=== PATIENT | female | born 1985 | race Caucasian/White ===

== ENCOUNTER 2019-10-20 19:04 | Emergency (ER) | payer OTHER, SELFPAY ==
--- NOTE | 2019-10-20 20:12 | EDPHYS ---
Physician Documentation [facility] Name: Shelby Campos Age: 34 yrs Sex: Female : 1985 Arrival Date: 10/20/2019 Time: 19:07 Bed 24 Private MD: ED Physician Zackary Damon HPI: 10/20 20:23 This 34 yrs old Female presents to ER via Ambulatory with complaints of Flu kb Symptoms. 20:23 The patient or guardian reports cough, that is intermittent, described as moderate, kb with no sputum, flu symptoms, low-grade fever. Onset: The symptoms/episode began/occurred 3 day(s) ago. Severity of symptoms: At their worst the symptoms were moderate, in the emergency department the symptoms are unchanged. Modifying factors: The symptoms are alleviated by nothing, the symptoms are aggravated by nothing. Associated signs and symptoms: Pertinent positives: fever, rhinorrhea. The patient has not experienced similar symptoms in the past. The patient has not recently seen a physician. 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 - Social history:: Smoking status: Patient uses tobacco products, Patient/guardian denies using alcohol, street drugs, IV drugs. - Ebola Screening: : No symptoms or risks identified at this time. ROS: 20:22 Eyes: Negative for injury, pain, redness, and discharge, Neck: Negative for injury, kb pain, and swelling, Cardiovascular: Negative for chest pain, palpitations, and edema, Abdomen/GI: Negative for abdominal pain, nausea, vomiting, diarrhea, and constipation, Back: Negative for injury and pain, MS/Extremity: Negative for injury and deformity, Skin: Negative for injury, rash, and discoloration, Neuro: Negative for headache, weakness, numbness, tingling, and seizure. 20:22 Constitutional: Positive for body aches, chills, fatigue, fever, malaise. 20:22 ENT: Positive for rhinorrhea, sinus congestion. 20:22 Respiratory: Positive for cough, Negative for dyspnea on exertion, hemoptysis, orthopnea, pleurisy, shortness of breath, sputum production, wheezing. Exam: 20:22 Constitutional: This is a well developed, well nourished patient who is awake, alert, kb and in no acute distress. Head/Face: Normocephalic, atraumatic. ENT: Nares patent. No nasal discharge, no septal abnormalities noted. Tympanic membranes are normal and external auditory canals are clear. Oropharynx with no redness, swelling, or masses, exudates, or evidence of obstruction, uvula midline. Mucous membranes moist. Neck: Trachea midline, no thyromegaly or masses palpated, and no cervical lymphadenopathy. Supple, full range of motion without nuchal rigidity, or vertebral point tenderness. No Meningismus. Chest/axilla: Normal chest wall appearance and motion. Nontender with no deformity. No lesions are appreciated. Cardiovascular: Regular rate and rhythm with a normal S1 and S2. No gallops, murmurs, or rubs. Normal PMI, no JVD. No pulse deficits. Respiratory: Lungs have equal breath sounds bilaterally, clear to auscultation and percussion. No rales, rhonchi or wheezes noted. No increased work of breathing, no retractions or nasal flaring. Abdomen/GI: Soft, non-tender, with normal bowel sounds. No distension or tympany. No guarding or rebound. No evidence of tenderness throughout. Skin: Warm, dry with normal turgor. Normal color with no rashes, no lesions, and no evidence of cellulitis. MS/ Extremity: Pulses equal, no cyanosis. Neurovascular intact. Full, normal range of motion. Neuro: Awake and alert, GCS 15, oriented to person, place, time, and situation. Cranial nerves II-XII grossly intact. Motor strength 5/5 in all extremities. Sensory grossly intact. Cerebellar exam normal. Normal gait. Vital Signs: 19:18 BP 108 / 79; Pulse 73; Resp 18; Temp 98; Pulse Ox 100% on R/A; Weight 90.72 kg; Height mg2 5 ft. 8 in. (172.72 cm); 19:18 Body Mass Index 30.41 (90.72 kg, 172.72 cm) mg2 MDM: 19:33 Patient medically screened. kb 20:21 Data reviewed: vital signs, nurses notes. Data interpreted: Pulse oximetry: on room air kb is 100 %. Interpretation: normal. Counseling: I had a detailed discussion with the patient and/or guardian regarding: the historical points, exam findings, and any diagnostic results supporting the discharge/admit diagnosis, lab results, the need for outpatient follow up, a family practitioner, to return to the emergency department if symptoms worsen or persist or if there are any questions or concerns that arise at home. 20:24 ED course: Pt is a smoker. kb 10/20 19:21 Order name: Flu; Complete Time: 20:08 mg2 Administered Medications: No medications were administered Disposition: 10/20/19 20:12 Discharged to Home. Impression: Bronchitis, not specified as acute or chronic. - Condition is Stable. - Discharge Instructions: Acute Bronchitis, [id number]. - Prescriptions for Prednisone 20 mg Oral Tablet - take 1 tablet by ORAL route once daily for 5 days; 5 tablet. Tessalon Perles 100 mg Oral Capsule - take 1 capsule by ORAL route every 8 hours As needed; 15 capsule. Zithromax Z- Justino 250 mg Oral Tablet - take 1 tablet by ORAL route as directed for 5 days Day 1 - take two (2) tablets one time. Day 2, 3, 4 , 5 take one (1) tablet once daily.; 6 tablet. - Medication Reconciliation Form, Thank You Letter, Antibiotic Education, Prescription Opioid Use, Work release form form. - Follow up: Emergency Department; When: As needed; Reason: Worsening of condition. Follow up: Private Physician; When: 2 - 3 days; Reason: Recheck today's complaints, Continuance of care, Re-evaluation by your physician. Addendum: 10/26/2019 07:05 Co-signature as Attending Physician, Zackary Damon MD. r n Signatures: Dispatcher [employer] EDNJ Liyah Falk, COMPUTATIONAL SCIENTIST-C COMPUTATIONAL SCIENTIST-Ckb Zackary Damon MD MD rn Gardose, Michele, RN RN mg2 Serafin Tucker RN RN tr5 Corrections: (The following items were deleted from the chart) 10/20 20:29 20:12 10/20/2019 20:12 Discharged to Home. Impression: Bronchitis, not specified as tr5 acute or chronic. Condition is Stable. Forms are Medication Reconciliation Form, Thank You Letter, Antibiotic Education, Prescription Opioid Use. Follow up: Emergency Department; When: As needed; Reason: Worsening of condition. Follow up: Private Physician; When: 2 - 3 days; Reason: Recheck today's complaints, Continuance of care, Re-evaluation by your physician. kb
--- NOTE | 2019-10-20 20:12 | ER ---
Nurse's Notes [facility] Name: Shelby Campos Age: 34 yrs Sex: Female : 1985 Arrival Date: 10/20/2019 Time: 19:07 Bed 24 Private MD: Diagnosis: Bronchitis, not specified as acute or chronic Presentation: 10/20 19:16 Presenting complaint: Patient states: cough, congestion and feels like my head is mg2 blowing for 4 days now. i had fever T-max 102.1. Transition of care: patient was not received from another setting of care. Onset of symptoms was October 2019. Risk Assessment: Do you want to hurt yourself or someone else? Patient reports no desire to harm self or others. Initial Sepsis Screen: Does the patient meet any 2 criteria? No. Patient's initial sepsis screen is negative. Does the patient have a suspected source of infection? No. Patient's initial sepsis screen is negative. Care prior to arrival: None. 19:16 Method Of Arrival: Ambulatory mg2 19:16 Acuity: ROSALVA 4 mg2 Triage Assessment: 20:26 General:. 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 - Social history:: Smoking status: Patient uses tobacco products, Patient/guardian denies using alcohol, street drugs, IV drugs. - Ebola Screening: : No symptoms or risks identified at this time. Screenin:55 Abuse screen: Denies threats or abuse. Nutritional screening: No deficits noted. tr5 Tuberculosis screening: No symptoms or risk factors identified. Fall Risk None identified. Assessment: 19:55 Pain: Complains of pain in face. Neuro: Reports headache. 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 Cardiovascular: Heart tones present Capillary refill < 3 seconds Pulses are all present. Respiratory: Reports cough that is. Respiratory: Airway is patent Respiratory effort is even, unlabored, Respiratory pattern is regular, symmetrical. GI: No signs and/or symptoms were reported involving the gastrointestinal system. : No signs and/or symptoms were reported regarding the genitourinary system. EENT: Reports nasal congestion nasal discharge. Derm: No signs and/or symptoms reported regarding the dermatologic system. Musculoskeletal: No signs and/or symptoms reported regarding the musculoskeletal system. Vital Signs: 19:18 BP 108 / 79; Pulse 73; Resp 18; Temp 98; Pulse Ox 100% on R/A; Weight 90.72 kg; Height mg2 5 ft. 8 in. (172.72 cm); 19:18 Body Mass Index 30.41 (90.72 kg, 172.72 cm) mg2 ED Course: 19:07 Patient arrived in ED. mr 19:14 Liyah Falk FNP-C is [facility]. kb 19:14 Zackary Damon MD is Attending Physician. kb 19:18 Triage completed. mg2 19:19 Arm band placed on. mg2 19:40 Serafin Tucker, LUCIA is Primary Nurse. tr5 19:42 Flu Sent. tr5 19:55 Bed in low position. Call light in reach. Side rails up X 1. tr5 20:27 No provider procedures requiring assistance completed. Patient did not have IV access tr5 during this emergency room visit. Administered Medications: No medications were administered Outcome: 20:12 Discharge ordered by MD. kb 20:27 Discharged to home ambulatory, with family. tr5 20:27 Condition: stable 20:27 Discharge instructions given to patient, family, Instructed on discharge instructions, follow up and referral plans. medication usage, Demonstrated understanding of instructions, follow-up care, medications, Prescriptions given X 3. 20:29 Patient left the ED. tr5 Signatures: Liyah Falk FNP-C FNP-Hermann Aleta NixJay, RN RN mg2 Serafin Tucker RN RN tr5 Corrections: (The following items were deleted from the chart) 19:20 19:18 LMP 10/17/2019 mg2 mg2
[2019-10-20 23:06] VITALS: BP 108/79; TEMP 98; O2SAT 100
== END 2019-10-20 20:29 | disposition home or self-care (01) ==
LOC: ER 19:04
DX: J40 Bronchitis, not specified as acute or chronic (principal); Z72.0 Tobacco use
CPT/HCPCS: 87804; 99283

== ENCOUNTER 2021-09-14 18:59 | Emergency (ER) | payer SELFPAY ==
[2021-09-14] MEDS ORDERED: MORPHINE 4 MG/ML SYR ONE (20:40)
[2021-09-14] MEDS ORDERED: ONDANSETRON 4 MG/2 ML VIAL ONE (20:41)
[2021-09-14] MEDS ORDERED: NA CHLORIDE 0.9% 1,000 ML ONE (20:41)
[2021-09-14 20:46] LABS: Absolute Lymphocytes (CBC) 2.9 K/uL (0.7-4.9); Basophils % 0.8 % (0-1.3); Hematocrit 34.5 % (36.0-45.0); Lymphocytes % 24.2 % (15.3-44.8); MPV 8.5 fL (7.6-11.3); RBC Red Blood Cell Count 3.65 M/uL (3.86-4.86)
--- NOTE | 2021-09-14 20:58 | RAD REPORT ---
EXAM DESCRIPTION: US - Transvaginal Study Probe - 09/14/2021 8:39 pm CLINICAL HISTORY: LLQ PAIN Pelvic pain. COMPARISON: <Comparisons> FINDINGS: The uterus is normal in size, shape and echotexture. The uterus measures 9.3 cm The endometrial stripe measures 4 mm, normal. Both ovaries are normal in size, shape and echotexture. The right ovary measures 12 cc. The left ov sami measures 5.7 cc. Simple 2.5 cm right ovaria cyst. No adnexal masses. Normal Doppler blood flow was demonstrated to both ovaries. No significant pelvic ascites. IMPRESSION: Bilateral ovarian blood flow. No suspicious findings.
--- NOTE | 2021-09-14 20:59 | RAD REPORT ---
EXAM DESCRIPTION: US - Pelvis Complete - 09/14/2021 8:36 pm CLINICAL HISTORY: llq pelvic pain Pelvic pain. FINDINGS: The uterus is normal in size, shape and echotexture. The uterus measures 9.3 cm The endometrial stripe measures 4 mm, normal. Both ovaries are normal in size, shape and echotexture. The right ovary measures 12 cc. The left ov sami measures 5.7 cc. Simple 2.5 cm right ovarian cyst. No adnexal masses. Normal Doppler blood flow was demonstrated to both ovaries. No significant pelvic ascites. IMPRESSION: Bilateral ovarian blood flow. No suspicious findings.
[2021-09-14 21:09] LABS: ALT/SGPT 27 U/L (12-78); AST/SGOT 18 U/L (15-37); Albumin 3.3 g/dL (3.4-5.0); Alkaline Phosphatase 76 U/L (45-117); BUN Blood Urea Nitrogen 13 mg/dL (7-18); Bicarbonate 27 mmol/L (21-32); Bilirubin Direct < 0.1 mg/dL (0-0.2); Bilirubin Total 0.3 mg/dL (0.2-1.0); Glucose Level 93 mg/dL (74-106); Lipase 107 U/L (73-393); Potassium 4.2 mmol/L (3.5-5.1); Protein, Total 7.1 g/dL (6.4-8.2); Sodium Level 139 mmol/L (136-145)
--- NOTE | 2021-09-14 21:31 | ER ---
Nurse's Notes [facility] Name: Shelby Campos Age: 36 yrs Sex: Female : 1985 Arrival Date: 09/14/2021 Time: 19:18 Bed 5 Private MD: Diagnosis: Pelvic and perineal pain Presentation: 09/14 19:18 Chief complaint: Patient states: Left sided pelvic pain, sharp/pulling pain, that began vg1 about two weeks and became 'severe' last night. Denies NVD. States the menstrual has been 'really weird' for the past three months. Coronavirus screen: Vaccine status: Patient reports being unvaccinated. Client denies travel out of the [place] in the last 14 days. Ebola Screen: Patient negative for fever greater than or equal to 101.5 degrees Fahrenheit, and additional compatible Ebola Virus Disease symptoms. Initial Sepsis Screen: Does the patient meet any 2 criteria? No. Patient's initial sepsis screen is negative. Does the patient have a suspected source of infection? No. Patient's initial sepsis screen is negative. Risk Assessment: Do you want to hurt yourself or someone else? Patient reports no desire to harm self or others. Onset of symptoms was August 26, 2021. 19:18 Method Of Arrival: Ambulatory vg1 19:18 Acuity: ROSALVA 3 vg1 Triage Assessment: 19:24 General: Appears in no apparent distress. uncomfortable, Behavior is calm, cooperative. vg1 Pain: Complains of pain in pelvis Pain currently is 10 out of 10 on a pain scale. GI: Patient currently denies diarrhea, nausea, vomiting. 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 - Social history:: Smoking status: Patient reports the use of cigarette tobacco products, 1 pack/ week, Patient uses Patient/guardian denies using alcohol, street drugs, The patient lives with family. - Family history:: not pertinent. Screenin:00 Abuse screen: Denies threats or abuse. Denies injuries from another. Nutritional mr2 screening: No deficits noted. Tuberculosis screening: No symptoms or risk factors identified. Fall Risk IV access (20 points). Vital Signs: 19:18 BP 116 / 50; Pulse 67; Resp 16; Temp 97.1; Pulse Ox 100% ; Weight 104.33 kg; Height 5 vg1 ft. 9 in. (175.26 cm); Pain 10/10; 19:18 Body Mass Index 33.96 (104.33 kg, 175.26 cm) vg1 ED Course: 19:18 Patient arrived in ED. vg1 19:24 Triage completed. vg1 19:24 Arm band placed on. vg1 19:26 Elizabeth Jacobs MD is Attending Physician. ma2 20:17 Gisele Bourgeois, RN is Primary Nurse. bs2 20:17 US Pelvis Complete Sent. bs2 20:29 US Pelvis Complete In Process Unspecified. EDMS 20:39 Transvaginal Study Probe In Process Unspecified. EDMS 21:00 Bed in low position. Call light in reach. Side rails up X2. Adult w/ patient. mr2 21:00 No provider procedures requiring assistance completed. mr2 21:30 Madhav Calero MD is Referral Physician. ma2 21:41 IV discontinued, intact, No redness/swelling at site. mr2 Administered Medications: 20:43 Drug: Zofran (Ondansetron) 4 mg Route: IVP; Site: right antecubital; bs2 20:44 Drug: morphine 4 mg Route: IVP; Site: right antecubital; bs2 20:44 Drug: NS 0.9% 1000 ml Route: IV; Rate: 1 bolus; Site: right antecubital; bs2 Outcome: 21:30 Discharge ordered by . ma2 21:40 Discharged to home ambulatory, with family. mr2 21:40 Condition: stable 21:40 Discharge instructions given to patient, Instructed on discharge instructions, follow up and referral plans. medication usage, Prescriptions given X 1. 21:41 Patient left the ED. mr2 Signatures: Dispatcher [employer] EDMS Elizabeth Jacobs MD MD ma2 Meme Peterson RN RN vg1 Gisele Bourgeois, LUCIA RN bs2 Marquise Delgado RN RN mr2 Corrections: (The following items were deleted from the chart) 19:29 19:18 BP 116 / 50; Pulse 67bpm; Resp 16bpm; Pulse Ox 100%; Temp 97.1F; Height 5 ft. 9 vg1 in.; Pain 10/10; vg1
--- NOTE | 2021-09-14 21:32 | EDPHYS ---
Physician Documentation [facility] Name: Shelby Campos Age: 36 yrs Sex: Female : 1985 Arrival Date: 09/14/2021 Time: 19:18 Bed 5 Private MD: ED Physician Elizabeth Jacobs HPI: 09/14 19:38 This 36 yrs old Female presents to ER via Ambulatory with complaints of ma2 Pelvic Pain. 19:38 The patient presents with flank pain, on the left, pelvic pain. Onset: The ma2 symptoms/episode began/occurred suddenly, 1 day(s) ago. Associated signs and symptoms: Pertinent negatives: cramping, dysuria, nausea, urinary frequency. Severity of symptoms: At their worst the symptoms were moderate, in the emergency department the symptoms are unchanged. The patient has not experienced similar symptoms in the past. 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 - Social history:: Smoking status: Patient reports the use of cigarette tobacco products, 1 pack/ week, Patient uses Patient/guardian denies using alcohol, street drugs, The patient lives with family. - Family history:: not pertinent. ROS: 19:38 Negative for ma2 19:38 Constitutional: Negative for fever, chills, and weight loss, Eyes: Negative for injury, pain, redness, and discharge, ENT: Negative for injury, pain, and discharge, Neck: Negative for injury, pain, and swelling, Cardiovascular: Negative for chest pain, palpitations, and edema, Respiratory: Negative for shortness of breath, cough, wheezing, and pleuritic chest pain, Abdomen/GI: Negative for abdominal pain, nausea, diarrhea, and constipation, Back: Negative for injury and pain. 19:38 All other systems are negative. Exam: 19:38 Constitutional: This is a well developed, well nourished patient who is awake, alert, ma2 and in no acute distress. Head/Face: Normocephalic, atraumatic. Eyes: Pupils equal round and reactive to light, extra-ocular motions intact. Lids and lashes normal. Conjunctiva and sclera are non-icteric and not injected. Cornea within normal limits. Periorbital areas with no swelling, redness, or edema. ENT: Nares patent. No nasal discharge, no septal abnormalities noted. Tympanic membranes are normal and external auditory canals are clear. Oropharynx with no redness, swelling, or masses, exudates, or evidence of obstruction, uvula midline. Mucous membranes moist. Neck: Trachea midline, no thyromegaly or masses palpated, and no cervical lymphadenopathy. Supple, full range of motion without nuchal rigidity, or vertebral point tenderness. No Meningismus. Chest/axilla: Normal chest wall appearance and motion. Nontender with no deformity. No lesions are appreciated. Cardiovascular: Regular rate and rhythm with a normal S1 and S2. No gallops, murmurs, or rubs. Normal PMI, no JVD. No pulse deficits. Respiratory: Lungs have equal breath sounds bilaterally, clear to auscultation and percussion. No rales, rhonchi or wheezes noted. No increased work of breathing, no retractions or nasal flaring. Abdomen/GI: Soft, non-tender, with normal bowel sounds. No distension or tympany. No guarding or rebound. No evidence of tenderness throughout. Back: No spinal tenderness. No costovertebral tenderness. Full range of motion. Skin: Warm, dry with normal turgor. Normal color with no rashes, no lesions, and no evidence of cellulitis. MS/ Extremity: Pulses equal, no cyanosis. Neurovascular intact. Full, normal range of motion. Neuro: Awake and alert, GCS 15, oriented to person, place, time, and situation. Cranial nerves II-XII grossly intact. Motor strength 5/5 in all extremities. Sensory grossly intact. Cerebellar exam normal. Normal gait. Vital Signs: 19:18 BP 116 / 50; Pulse 67; Resp 16; Temp 97.1; Pulse Ox 100% ; Weight 104.33 kg; Height 5 vg1 ft. 9 in. (175.26 cm); Pain 10/10; 19:18 Body Mass Index 33.96 (104.33 kg, 175.26 cm) vg1 MDM: 19:29 Patient medically screened. ma2 19:38 Differential diagnosis: menorrhea, nonspecific abdominal pain, urinary tract infection. ms2 19:51 Differential diagnosis: Patient agreed on getting CT abdomen pelvis, however she ma2 changed her mind and declined the test, I explained the need and is necessary test to rule out emergency conditions, patient still declined understand the risk of refusing CT abdomen pelvis. 21:30 Data reviewed: vital signs, nurses notes. Counseling: I had a detailed discussion with ma2 the patient and/or guardian regarding: the historical points, exam findings, and any diagnostic results supporting the discharge/admit diagnosis, the presence of at least one elevated blood pressure reading (>120/80) during this emergency department visit. Response to treatment: the patient's symptoms have markedly improved after treatment. 09/14 19:31 Order name: Basic Metabolic Panel; Complete Time: 21:25 [facility] 09/14 19:31 Order name: CBC with Diff; Complete Time: 21:25 [facility] 09/14 19:31 Order name: Hepatic Function; Complete Time: 21:25 [facility] 09/14 19:31 Order name: Lipase; Complete Time: 21:25 [facility] 09/14 19:38 Order name: US Pelvis Complete; Complete Time: 21:25 [facility] 09/14 19:31 Order name: IV Saline Lock [facility] 09/14 19:31 Order name: Labs collected and sent [facility] 09/14 19:31 Order name: Urine Dipstick-Ancillary (obtain specimen) [facility] 09/14 19:31 Order name: Urine Test (obtain specimen) [facility] 09/14 20:37 Order name: Transvaginal Study Probe; Complete Time: 21:25 EDMS Administered Medications: 20:43 Drug: Zofran (Ondansetron) 4 mg Route: IVP; Site: right antecubital; bs2 20:44 Drug: morphine 4 mg Route: IVP; Site: right antecubital; bs2 20:44 Drug: NS 0.9% 1000 ml Route: IV; Rate: 1 bolus; Site: right antecubital; bs2 Disposition Summary: 09/14/21 21:30 Discharge Ordered Location: Home ma2 Condition: Stable ma2 Diagnosis - Pelvic and perineal pain ms2 Followup: ma2 - With: Madhav Calero MD - When: Tomorrow - Reason: If symptoms return, Continuance of care Discharge Instructions: - Discharge Summary Sheet ma2 - Pelvic Pain, Female, [id number] ma2 Forms: - Medication Reconciliation Form ma2 - Thank You Letter ma2 - Antibiotic Education ma2 - Prescription Opioid Use ma2 Prescriptions: - Diclofenac Sodium 75 mg Oral Tablet Sustained Release - take 1 tablet by ORAL route 2 times per day; 30 tablet; Refills: 0, Product ma2 Selection Permitted Signatures: Dispatcher [employer] EDElizabeth Paul MD MD ma2 Meme Peterson RN RN vg1 Gisele Bourgeois RN RN bs2
[2021-09-14 21:48] VITALS: BP 116/50; TEMP 97.1; O2SAT 100
== END 2021-09-14 21:41 | disposition home or self-care (01) ==
LOC: ER 18:59
DX: R10.2 Pelvic and perineal pain (principal); F41.9 Anxiety disorder, unspecified; F17.210 Nicotine dependence, cigarettes, uncomplicated
CPT/HCPCS: 36415; 76830; 76856; 80048; 80076; 83690; 85025; 96374; 96375; 99283; J2405; J7030

== ENCOUNTER → 2023-12-07 | Emergency (ER) | payer SELFPAY ==
[2012-06-05 20:40] VITALS: BP 142/67
[~2023-12-07] MED LIST: HYDROCODONE/APAP 10/325 TAB ONE; KETOROLAC 30 MG/ML INJ ONE
--- OUTSIDE RECORDS SUMMARY | 2023-12-07 17:56 | XMS REPORT | Continuity of Care Document ---
Author Name Unknown Address [address] [facility] [address] [id number] [facility] thconnect Address [address] [facility] [address] [place] [address] Care Team Providers Care Title Attorney Name Role Phone Marisol Archuleta Attending Clinician Unavailable Lindsay Chung Attending Clinician Unavailable Encounters Start Date/Time End Date/Time Encounter Type Admission Type Attending Clinicians Care Facility Care Department Encounter ID Source 2023-04-01 10:22:47 Outpatient [facility] [id number] [facility] 2023-10-19 09:42:00 2023-10-19 09:42:00 Outpatient Marisol Archuleta [facility] [id number] [facility] 2023-04-01 10:39:00 2023-04-01 10:39:00 Outpatient Lindsay Chung CHW [id number] [facility]
--- NOTE | 2023-12-07 19:08 | RAD REPORT ---
EXAM DESCRIPTION: RAD - Chest Single View - 12/07/2023 7:02 pm CLINICAL HISTORY: PAIN Chest pain. COMPARISON: <Comparisons> FINDINGS: Portable technique limits examination quality. The lungs are grossly clear. The heart is normal in size. No displaced fractures. IMPRESSION: No acute intrathoracic process suspected.
--- NOTE | 2023-12-07 19:08 | RAD REPORT ---
EXAM DESCRIPTION: RAD - Shoulder Left 2 View - 12/07/2023 7:02 pm CLINICAL HISTORY: PAIN COMPARISON: <Comparisons> FINDINGS: Mild widening of the AC joint could indicate grade 1 separation. No fracture or dislocatio n otherwise seen.
--- NOTE | 2023-12-07 19:09 | RAD REPORT ---
EXAM DESCRIPTION: RAD - Ribs Left - 12/07/2023 7:02 pm CLINICAL HISTORY: PAIN COMPARISON: <Comparisons> FINDINGS: No displaced rib fracture is seen. No underlying pneumothorax.
--- NOTE | 2023-12-07 20:14 | ER ---
Nurse's Notes [facility] Name: Shelby Campos Age: 38 yrs Sex: Female : 1985 Arrival Date: 12/07/2023 Time: 17:53 Bed IW1 Private MD: Diagnosis: Pain in left shoulder Presentation: 12/07 18:04 Chief complaint: Patient states: she had a fall injury approx 10 days ago, and is ap3 complaining of left shoulder pain that is getting worse and not any better. patient states the pain radiates to her mid-back area, and reports her pain to be a 10/10 at this time. Coronavirus screen: At this time, the client does not indicate any symptoms associated with coronavirus-19. Ebola Screen: No symptoms or risks identified at this time. Initial Sepsis Screen: Does the patient meet any 2 criteria? No. Patient's initial sepsis screen is negative. Does the patient have a suspected source of infection? No. Patient's initial sepsis screen is negative. Risk Assessment: Do you want to hurt yourself or someone else? Patient reports no desire to harm self or others. Onset of symptoms was November 27, 2023. 18:04 Method Of Arrival: Ambulatory ap3 18:09 Acuity: ROSALVA 4 ap3 Triage Assessment: 18:07 General: Appears uncomfortable, Behavior is calm, cooperative, appropriate for age. ap3 Pain: Complains of pain in anterior aspect of left shoulder and posterior aspect of left shoulder Pain radiates to left elbow and mid-back Pain currently is 10 out of 10 on a pain scale. Neuro: Level of Consciousness is awake, alert, obeys commands, Oriented to person, place, time, situation, Appropriate for age. Cardiovascular: Patient's skin is warm and dry. Respiratory: Airway is patent Respiratory effort is even, unlabored, Respiratory pattern is regular, symmetrical. 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 - Social history:: Smoking status: Patient reports the use of cigarette tobacco products, smokes one-half pack cigarettes per day. Screenin:08 [facility] ED Fall Risk Assessment (Adult) History of falling in the last 3 months, ap3 including since admission Yes- single mechanical fall (1 pt). Abuse screen: Denies threats or abuse. Nutritional screening: No deficits noted. Tuberculosis screening: No symptoms or risk factors identified. Primary Survey: 18:08 NO uncontrolled hemorrhage observed. A: The client is awake and alert. The airway is ap3 patent. Breathing/Chest: Spontaneous respiratory effort, equal unlabored respirations, breath sounds clear bilaterally, regular pattern, symmetrical chest rise and fall. Circulation: No external hemorrhage present. Regular and strong central pulse, skin warm/dry/normal color. Disability Client is alert. Exposure/Environment: A warming method has been applied: A warm blanket has been provided to the patient. Vital Signs: 18:04 Pulse 78; Resp 19; Temp 98.8; Pulse Ox 97% on R/A; Weight 136.08 kg; Height 5 ft. 9 in. ap3 ; Pain 10/10; 18:04 Body Mass Index 44.30 (136.08 kg, 175.26 cm) ap3 18:04 Pain Scale: Adult ap3 ED Course: 17:56 Patient arrived in ED. mg5 18:02 Liyah Falk FNP-C is [facility]. kb 18:02 Eloy Das MD is Attending Physician. kb 18:09 Triage completed. ap3 18:09 Arm band placed on right wrist. ap3 19:04 Ribs Left XRAY In Process Unspecified. EDMS 19:04 Shoulder Left (2 View) XRAY In Process Unspecified. EDMS 19:04 Chest Single View XRAY In Process Unspecified. EDMS 20:41 Provided Education on: discharge instructions. ap3 20:41 Patient has correct armband on for positive identification. ap3 20:41 No provider procedures requiring assistance completed. Patient did not have IV access ap3 during this emergency room visit. Administered Medications: 18:12 Drug: [place] PO 10 mg-325 mg 1 tabs PO once Route: PO; ap3 20:40 Follow up: Response: No adverse reaction; RASS: Alert and Calm (0) ap3 20:40 Drug: Ketorolac IM 30 mg IM once Route: IM; Site: right deltoid; ap3 Medication: 20:41 VIS not applicable for this client. ap3 Outcome: 20:14 Discharge ordered by MD. dasilva 20:41 Discharged to home ambulatory, ap3 20:41 Condition: good 20:41 Discharge instructions given to patient, Instructed on discharge instructions, follow up and referral plans. 20:42 Patient left the ED. ap3 Signatures: Dispatcher [employer] EDLiyah Church, Tiffanie Scott RN RN ap3 Joanne French mg5
--- NOTE | 2023-12-07 20:15 | EDPHYS ---
Physician Documentation [facility] Name: Shelby Campos Age: 38 yrs Sex: Female : 1985 Arrival Date: 12/07/2023 Time: 17:53 Bed IW1 Private MD: ED Physician Eloy Das HPI: 12/07 23:39 This 38 yrs old Female presents to ER via Ambulatory with complaints of Fall Injury, kb Pain All Over. 23:39 Patient is a 38-year-old female who presents for left shoulder and posterior chest pain kb that started 9 days ago after falling onto left shoulder. Denies shortness of breath. Reports increased pain with movement and deep breath.. 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 - Social history:: Smoking status: Patient reports the use of cigarette tobacco products, smokes one-half pack cigarettes per day. ROS: 23:39 Constitutional: Negative for fever, chills, and weight loss, kb 23:39 MS/extremity: Positive for pain, of the posterior aspect of left shoulder and anterior aspect of left shoulder, 23:39 All other systems are negative, Exam: 23:39 Constitutional: This is a well developed, well nourished patient who is awake, alert, kb and in no acute distress. Head/Face: Normocephalic, atraumatic. ENT: Moist Mucous membranes Cardiovascular: Regular rate Respiratory: Respirations even and unlabored. No increased work of breathing. Talking in full sentences Skin: Warm, dry with normal turgor. Normal color. Neuro: Awake and alert, GCS 15, oriented to person, place, time, and situation. Moves all extremities. Normal gait. 23:39 Back: pain, that is mild, that is moderate, of the left scapular area, 23:39 Musculoskeletal/extremity: Extremities: grossly normal except: noted in the anterior aspect of left shoulder and posterior aspect of left shoulder: decreased ROM, pain, tenderness, ROM: limited active range of motion due to pain, in the posterior aspect of left shoulder and anterior aspect of left shoulder, Circulation is intact in all extremities. Sensation intact. Vital Signs: 18:04 Pulse 78; Resp 19; Temp 98.8; Pulse Ox 97% on R/A; Weight 136.08 kg; Height 5 ft. 9 in. ap3 ; Pain 10/10; 18:04 Body Mass Index 44.30 (136.08 kg, 175.26 cm) ap3 18:04 Pain Scale: Adult ap3 MDM: 18:02 Patient medically screened. kb 23:39 Differential diagnosis: fracture, sprain, strain. Data reviewed: vital signs, nurses kb notes. Counseling: I had a detailed discussion with the patient and/or guardian regarding the historical points, exam findings, and any diagnostic results supporting the discharge/admit diagnosis, radiology results, the need for outpatient follow up, a family practitioner, a orthopedic surgeon, to return to the emergency department if symptoms worsen or persist or if there are any questions or concerns that arise at home. 12/07 18:09 Order name: Ribs Left XRAY; Complete Time: 19:11 kb 12/07 18:09 Order name: Shoulder Left (2 View) XRAY; Complete Time: 19:11 kb 12/07 18:09 Order name: Chest Single View XRAY; Complete Time: 19:11 kb 12/07 19:48 Order name: Sling; Complete Time: 20:40 kb Administered Medications: 18:12 Drug: [place] PO 10 mg-325 mg 1 tabs PO once Route: PO; ap3 20:40 Follow up: Response: No adverse reaction; RASS: Alert and Calm (0) ap3 20:40 Drug: Ketorolac IM 30 mg IM once Route: IM; Site: right deltoid; ap3 Disposition Summary: 12/07/23 20:14 Discharge Ordered Notes: Location: Home kb Condition: Stable kb Diagnosis - Pain in left shoulder kb Followup: kb - With: Emergency Department - When: As needed - Reason: Worsening of condition Followup: kb - With: Private Physician - When: 2 - 3 days - Reason: Recheck today's complaints, Continuance of care, Re-evaluation by your physician Discharge Instructions: - Discharge Summary Sheet kb - Musculoskeletal Pain kb - Shoulder Pain, [id number] kb Forms: - Medication Reconciliation Form kb - Thank You Letter kb - Antibiotic Education kb - Prescription Opioid Use kb - Patient Portal Instructions kb - Leadership Thank You Letter Prescriptions: - Diclofenac Sodium 75 mg Oral tablet, delayed release (enteric coated) - take 1 tablet ORAL route 2 times per day As needed; 30 tablet; Refills: 0, kb Product Selection Permitted - orphenadrine citrate 100 mg Oral Tablet Sustained Release - take 1 tablet ORAL route 2 times per day As needed; 20 tablet; Refills: 0, kb Product Selection Permitted Signatures: Dispatcher [employer] Liyah Geronimo, Tiffanie Scott, RN RN ap3
== END ==
LOC: ER 17:53
DX: M25.512 Pain in left shoulder (principal); F17.210 Nicotine dependence, cigarettes, uncomplicated
CPT/HCPCS: 71045

== ENCOUNTER 2024-11-13 05:29 | Emergency (ER) | payer SELFPAY ==
--- OUTSIDE RECORDS SUMMARY | 2024-11-13 05:32 | XMS REPORT | Continuity of Care Document ---
Author Name Unknown Address [address] [facility] [address] [place] [address] [facility] thconnect Address [address] [facility] [address] [place] [address] Care Team Providers Care Finisher Plate Name Role Phone URMILA GONZÁLES Attending Clinician Unavailable Payers Payer Name Policy Type Policy Number Effective Date Expirati on Date Source Allergies, Adverse Reactions, Alerts Allergy Name Allergy Type Status Severity Reaction(s) Onset Date Inactive Date Treating Clinician Comments Source No known allergy Miscella neous allergy Active 03-23 00:00: 00 [facility] No known allergy Miscella neous allergy Active 03-23 00:00: 00 [facility] Encounters Start Date/Time End Date/Time Encounter Type Admission Type Attending Clinicians Care Facility Care Department Encounter ID Source 2024-03-01 08:45:00 2024-03-01 08:45:00 Outpatient SELF/OTHER INDIVIDUAL URMILA GONZÁLES [id number] [facility]
[2024-11-13] MEDS ORDERED: LIDOCAINE VISCOUS 2% 10ML ORAL SOLN ONE ×2 (05:45→07:21)
[2024-11-13 05:52] LABS: Absolute Eosinophils 0.1 K/uL (0-0.5); Absolute Lymphocytes (CBC) 1.7 K/uL (0.7-4.9); Absolute Monocytes 0.5 K/uL (0.1-1.3); Basophils % 0.5 % (0-1.3); Hematocrit 34.5 % (36.0-45.0); Hemoglobin 11.6 g/dL (12.0-15.0); MCH 30.2 pg (27.0-35.0); MCHC 33.5 g/dL (32.0-36.0); MCV 90.2 fL (80-100); MPV 8.8 fL (7.6-11.3); Monocytes % 7.5 % (3.3-12.3); Platelets 241 thou/uL (152-406); RBC Red Blood Cell Count 3.83 M/uL (3.86-4.86); Red Cell Distribution Width 14.7 % (12.1-15.2)
[2024-11-13 06:05] LABS: Anion Gap 9.6 mEq/L (5.0-15.0); Potassium 3.6 mEq/L (3.5-5.1)
--- NOTE | 2024-11-13 07:06 | RAD REPORT ---
PROCEDURE: CT Head Without Intravenous Contrast CLINICAL INDICATION: The patient is 39 years old and is Female; Possible seizure. TECHNIQUE: Axial computed tomography images of the head/brain without intravenous contrast. Sagittal and coron al reformatted images were created and reviewed. This CT exam was performed using one or more of the following dose reduction techniques: automated exposure control, adjustment of the mA and/or kV according to patient size, and/or use of iterative reconstruction technique. COMPARISON: None. FINDINGS: BRAIN: No extra-axial fluid collection. No intracranial hemorrhage. No transtentorial herniation. N o focal benoit-white matter differentiation abnormality. MIDLINE SHIFT: None. VENTRICLES: Unremarkable No ventriculomegaly. BONES/JOINTS: No fracture of the calvarium or visualized facial bones. SOFT TISSUES: Unremarkable SINUSES: No masses, bony erosion or evidence of acute sinusitis. MASTOID AIR CELLS: Unremarkable as visualized. No mastoid effusion. IMPRESSION: No acute intracranial abnormality. Electronically signed by: Bob Finch MD 11/13/2024 07:03 AM [facility] Due to temporary technical issues with the PACS/Joturl reporting system, reports are being christopher d by the in-house radiologist without review as a courtesy to ensure prompt reporting the interpreting radiologist is fully responsible for the content of the report. Transcribed Date/Time: 11/13/2024 7:06 AM
--- NOTE | 2024-11-13 07:14 | ER ---
Nurse's Notes [facility] Name: Shelby Campos Age: 39 yrs Sex: Female : 1985 Arrival Date: 11/13/2024 Time: 05:29 Bed 4 Private MD: Diagnosis: Possible Seizure;Tongue Contusion Presentation: 11/13 05:38 Chief complaint: Patient states: c/o tongue swelling. states that she woke up yesterday al5 morning to dried blood down her face and pillow case, thinks she may have bit her tongue in the middle of her sleep. Coronavirus screen: At this time, the client does not indicate any symptoms associated with coronavirus-19. Ebola Screen: No symptoms or risks identified at this time. Initial Sepsis Screen: Does the patient meet any 2 criteria? No. Patient's initial sepsis screen is negative. Does the patient have a suspected source of infection? No. Patient's initial sepsis screen is negative. Risk Assessment: Do you want to hurt yourself or someone else? Patient reports no desire to harm self or others. Onset of symptoms was November 11, 2023. 05:38 Acuity: ROSALVA 3 al5 05:38 Method Of Arrival: Ambulatory al5 Triage Assessment: 05:42 General: Appears in no apparent distress. uncomfortable, Behavior is calm, cooperative. al5 Pain: Complains of pain in tongue. EENT: some tongue swelling. Neuro: Level of Consciousness is awake, alert, obeys commands, Oriented to person, place, time, situation. Cardiovascular: Capillary refill < 3 seconds Patient's skin is warm and dry. Respiratory: Airway is patent Respiratory effort is even, unlabored, Respiratory pattern is regular, symmetrical. GI: No signs and/or symptoms were reported involving the gastrointestinal system. : No signs and/or symptoms were reported regarding the genitourinary system. Derm: Skin is intact, is healthy with good turgor, Skin is pink, warm \T\ dry. normal. Musculoskeletal: No signs and/or symptoms reported regarding the musculoskeletal system. 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 - Infectious Disease History:: Denies. - Social history:: Smoking status: Patient denies any tobacco usage or history of. Screenin:43 [facility] ED Fall Risk Assessment (Adult) History of falling in the last 3 months, al5 including since admission No falls in past 3 months (0 pts) Confusion or Disorientation No (0 pts) Intoxicated or Sedated No (0 pts) Impaired Gait No (0 pts) Mobility Assist Device Used No (0 pt) Altered Elimination No (0 pt) Score/Fall Risk Level 0 - 2 = Low Risk Oriented to surroundings, Maintained a safe environment, Hourly rounding (assess needs \T\ fall precautionary measures) done. Abuse screen: Denies threats or abuse. Denies injuries from another. Nutritional screening: No deficits noted. Tuberculosis screening: No symptoms or risk factors identified. Assessment: 05:43 Reassessment: see triage assessment. al5 06:38 Reassessment: Patient appears in no apparent distress at this time. Patient and/or 8 family updated on plan of care and expected duration. Pain level reassessed. Patient is alert, oriented x 3, equal unlabored respirations, skin warm/dry/pink. Patient states symptoms have improved. 07:14 Reassessment: Patient and/or family updated on plan of care and expected duration. Pain ap3 level reassessed. Patient is alert, oriented x 3, equal unlabored respirations, skin warm/dry/pink. General: Appears in no apparent distress. Behavior is calm, cooperative. Respiratory: Airway is patent Respiratory effort is even, unlabored. Vital Signs: 05:38 BP 137 / 104; Pulse 66; Resp 18; Temp 98.4; Pulse Ox 100% on R/A; Weight 130.63 kg; al5 Height 5 ft. 8 in. ; 06:38 BP 125 / 65; Pulse 62; Resp 13; Temp 98.6; Pulse Ox 96% ; Pain 5/10; bm8 07:27 BP 141 / 88; Pulse 57; Resp 16; Temp 98.4(TE); Pulse Ox 99% ; ap3 05:38 Body Mass Index 43.79 (130.63 kg, 172.72 cm) al5 06:38 Pain Scale: Adult 8 ED Course: 05:31 Patient arrived in ED. jj6 05:31 Naun Xiao MD is Attending Physician. ec2 05:38 Tiffanie Wei RN is Primary Nurse. al5 05:40 Triage completed. al5 05:43 Arm band placed on right wrist. Patient placed in the treatment room, on a stretcher, al5 on pulse oximetry. 05:43 Patient has correct armband on for positive identification. Bed in low position. Call al5 light in reach. Side rails up X 1. Provided Education on: plan of care. 05:43 No provider procedures requiring assistance completed. Inserted saline lock: 20 gauge al5 in left antecubital area, using aseptic technique. ,using aseptic technique. done by LUCIA Sandoval Blood collected. Flushed with 10 mL NS. 06:00 CT Head Brain wo Cont In Process Unspecified. EDMS 07:01 Attending Physician role handed off by Naun Xiao MD ec2 07:01 Hadley Deutsch DO is Attending Physician. ec2 07:13 Real Armstrong MD is Referral Physician. ms3 07:27 IV discontinued, intact, bleeding controlled, No redness/swelling at site. Pressure ap3 dressing applied. Administered Medications: 05:53 Drug: Viscous Lidocaine Mucous Membrane Liquid (4 %) 10 ml Mucous Membrane once Route: bm8 Mucous Membrane; 07:19 Not Given (Duplicate Order): viscous lidocaineliquid (4 %) 10 ml Mucous Membrane once ap3 07:26 Drug: Viscous Lidocaine Mucous Membrane Liquid (4 %) 10 ml Mucous Membrane once Route: ap3 Mucous Membrane; 07:28 Follow up: Response: No adverse reaction; Medication administered at discharge. ap3 Medication: 05:43 VIS not applicable for this client. al5 Outcome: 07:13 Discharge ordered by . ms3 07:27 Discharged to home ambulatory, ap3 07:27 Condition: good 07:27 Discharge instructions given to patient, Instructed on discharge instructions, follow up and referral plans. Demonstrated understanding of instructions, follow-up care, 07:28 Patient left the ED. ap3 Signatures: Dispatcher [employer] EDMS Tiffanie Perry RN RN ap3 Hadley Deutsch DO DO ms3 Leigh Hurt jj6 Naun Xiao MD MD ec2 Jaime Duran, RN RN bm8 Tiffanie Wei RN RN al5 Corrections: (The following items were deleted from the chart) 05:40 05:38 BP 137 / 104; Pulse 66bpm; Resp 18bpm; Pulse Ox 100% RA; Temp 98.4F; 130.63 kg; al5 Height 5 ft. 9 in.; BMI: 42.5; al5 06:43 06:38 Pulse 62bpm; Resp 13bpm; Pulse Ox 96%; Temp 98.6F; Pain 5/10, Adult; bm8 bm8
--- NOTE | 2024-11-13 07:14 | EDPHYS ---
Physician Documentation [facility] Name: Shelby Campos Age: 39 yrs Sex: Female : 1985 Arrival Date: 11/13/2024 Time: 05:29 Bed 4 Private MD: ED Physician Hadley Deutsch HPI: 11/13 05:35 This 39 yrs old Female presents to ER via Unassigned with complaints of Mouth ec2 Problem, Swelling Of Tongue. 05:35 Patient arrives today for evaluation of biting her tongue on the right lateral aspect. ec2 States that approximately 24 hours ago she had woken up and had bit her tongue she had blood on her face and was having mouth pain. No history of seizures, no recent falls injuries or trauma, no illnesses. Denies any headaches. Patient takes Lexapro. 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 - Infectious Disease History:: Denies. - Social history:: Smoking status: Patient denies any tobacco usage or history of. ROS: 05:36 Constitutional: as per hpi ec2 Exam: 05:36 Constitutional: GEN: NAD Head: atraumatic Eyes: EOMI Ears: External ears are normal. ec2 Mouth: Contusion to the lateral aspect of the right tongue, no laceration appreciated. CV: regular rate LUNGS: no respiratory distress ABD: non-distended SKIN: no evidence of rashes MSK: no evidence of trauma. Neuro: Cranial nerves II through XII intact come to the doctor for extremities, gait normal. Vital Signs: 05:38 BP 137 / 104; Pulse 66; Resp 18; Temp 98.4; Pulse Ox 100% on R/A; Weight 130.63 kg; al5 Height 5 ft. 8 in. ; 06:38 BP 125 / 65; Pulse 62; Resp 13; Temp 98.6; Pulse Ox 96% ; Pain 5/10; bm8 07:27 BP 141 / 88; Pulse 57; Resp 16; Temp 98.4(TE); Pulse Ox 99% ; ap3 05:38 Body Mass Index 43.79 (130.63 kg, 172.72 cm) al5 06:38 Pain Scale: Adult bm8 MDM: 05:31 Medical Screening Exam initiated ec2 05:36 Data reviewed: vital signs, nurses notes. ED course: Patient arrives today for ec2 evaluation of a tongue injury. Examination yields tongue findings as above otherwise intact neurologic exam. Will obtain lab work, EKG, CT scan of the head. Differential diagnosis includes tongue contusion, intracranial mass, seizure.. 05:53 ED course: EKG independently reviewed and interpreted by me, shows nsr, rate of 69, no ec2 acute st segment elevations, intervals are non-actionable.. 06:13 ED course: CBC shows slight anemia. Metabolic profile reassuring. Pending CT scan of ec2 the head.. 06:57 Transition of care: After a detail discussion of the patient's case, care is ec2 transferred to Hadley Deutsch DO. ED course: Patient signed out to oncoming physician with pending CT scan of the head.. 07:00 Transition of care: Care assumed from Naun Xiao MD. ms3 07:13 Differential diagnosis: Seizure vs Tongue abrasion vs tongue contusion. I considered ms3 the following discharge prescriptions or medication management in the emergency department Medications were administered in the Emergency Department. See MAR. Counseling: I had a detailed discussion with the patient and/or guardian regarding the historical points, exam findings, and any diagnostic results supporting the discharge/admit diagnosis, lab results, radiology results, the need for outpatient follow up, to return to the emergency department if symptoms worsen or persist or if there are any questions or concerns that arise at home. ED course: Discussed negative CT head and labs with patient. Patient is alert and oriented x 4, no apparent distress, nontoxic-appearing, speaking full sentences. Patient to follow-up with Dr. Armstrong as discussed. All questions were answered. Return precautions discussed include worsening symptoms, or any other concerns.. 11/13 05:35 Order name: Basic Metabolic Panel; Complete Time: 06:13 ec2 11/13 05:35 Order name: CBC with Diff; Complete Time: 06:13 ec2 11/13 05:35 Order name: Test, Serum; Complete Time: 06:13 ec2 11/13 05:35 Order name: CT Head Brain wo Cont; Complete Time: 07:10 ec2 11/13 05:35 Order name: EKG; Complete Time: 05:36 2 11/13 05:35 Order name: Cardiac monitoring; Complete Time: 05:43 11/13 05:35 Order name: EKG - Nurse/Tech; Complete Time: 05:43 ec2 11/13 05:35 Order name: IV Saline Lock; Complete Time: 05:43 ec2 11/13 05:35 Order name: Labs collected and sent; Complete Time: 05:43 ec2 11/13 05:35 Order name: O2 Per Protocol; Complete Time: 05:43 ec2 11/13 05:35 Order name: O2 Sat Monitoring; Complete Time: :43 ec2 Administered Medications: 05:53 Drug: Viscous Lidocaine Mucous Membrane Liquid (4 %) 10 ml Mucous Membrane once Route: bm8 Mucous Membrane; 07:19 Not Given (Duplicate Order): viscous lidocaineliquid (4 %) 10 ml Mucous Membrane once ap3 07:26 Drug: Viscous Lidocaine Mucous Membrane Liquid (4 %) 10 ml Mucous Membrane once Route: ap3 Mucous Membrane; 07:28 Follow up: Response: No adverse reaction; Medication administered at discharge. ap3 Disposition Summary: 11/13/24 07:13 Discharge Ordered Notes: Location: Home ms3 Condition: Stable ms3 Diagnosis - Possible Seizure ms3 - Tongue Contusion ms3 Followup: ec2 - With: Real Armstrong MD - When: - Reason: Recheck today's complaints Discharge Instructions: - Discharge Summary Sheet ec2 - Seizure, Adult, [id number] ec2 Forms: - Medication Reconciliation Form ms3 - Antibiotic Education ms3 - Prescription Opioid Use ms3 - Patient Portal Instructions ms3 - Leadership Thank You Letter ms3 Signatures: Dispatcher [employer] Tiffanie Bowers RN RN ap3 Hadley Deutsch DO DO ms3 Naun Xiao MD MD ec2 Jaime Duran RN RN bm8 Tiffanie Wei RN RN al5 Corrections: (The following items were deleted from the chart) 05:37 05:36 Constitutional: GEN: NAD Head: atraumatic Eyes: EOMI Ears: External ears are ec2 normal. CV: regular rate LUNGS: no respiratory distress ABD: non-distended SKIN: no evidence of rashes MSK: no evidence of trauma. Neuro: Cranial nerves II through XII intact come to the doctor for extremities, gait normal. ec2
[2024-11-14 16:34] VITALS: BP 141/88; TEMP 98.4; O2SAT 99
--- NOTE | 2024-11-16 12:08 | EKG ---
Test Date: 2024-11-13 Test Time: 05:51:05 Field Consultant: HAILEY MEASUREMENT RESULTS: Intervals: Rate: 69 FL: 142 QRSD: 82 QT: 424 QTc: 454 Mccormick: P: 64 FL: 142 QRS: 62 T: 55 INTERPRETIVE STATEMENTS: Normal sinus rhythm Normal ECG No previous ECG available for comparison Electronically Signed On 11-16-24 12:07:22 FINANCIAL PLANNING CONSULTANT by Sesar Kaplan
== END 2024-11-13 07:28 | disposition home or self-care (01) ==
LOC: ER 05:29
DX: S00.532A Contusion of oral cavity, initial encounter (principal)
CPT/HCPCS: 36415; 70450; 80048; 84703; 85025; 93005; 99284

== ENCOUNTER 2025-01-04 00:21 | Inpatient (IN) | payer MEDICAID, SELFPAY ==
--- OUTSIDE RECORDS SUMMARY | 2025-01-04 00:24 | XMS REPORT | Continuity of Care Document ---
Author Name Unknown Address [address] [place] [address] [facility] thconnect Address [address] [place] [address] Care Team Providers Care Tack Driller Name Role Phone URMILA GONZÁLES Attending Clinician Unavailable Payers Payer Name Policy Type Policy Number Effective Date Expirati on Date Source Allergies, Adverse Reactions, Alerts Allergy Name Allergy Type Status Severity Reaction(s) Onset Date Inactive Date Treating Clinician Comments Source No known allergy Miscella neous allergy Active 03-23 00:00: 00 [facility] No known allergy Miscella neous allergy Active 03-23 00:00: 00 [facility] Encounters Start Date/Time End Date/Time Encounter Type Admission Type Attending Clinicians Care Facility Care Department Encounter ID Source 2024-03-01 08:45:00 2024-03-01 08:45:00 Outpatient SELF/OTHER INDIVIDUAL URMILA GONZÁLES [id number] [phone] [facility]
[2025-01-04] MEDS ORDERED: CEFTRIAXONE 1000 MG/VIAL ONE (02:26)
[2025-01-04] MEDS ORDERED: MORPHINE 4 MG/ML SYR ONE ×4 (02:26→10:39)
[2025-01-04] MEDS ORDERED: KETOROLAC 30 MG/ML INJ ONE (02:26)
[2025-01-04] MEDS ORDERED: DIPHENOX/ATROP SULF 1 TAB PO ONE (02:27)
[2025-01-04] MEDS ORDERED: NA CHLORIDE 0.9% 50 ML ONE (02:27)
[2025-01-04] MEDS ORDERED: NA CHLORIDE 0.9% 1,000 ML ONE (02:27)
[2025-01-04 02:51] LABS: Specific Gravity 1.028 (1.005-1.030); Urine Bacteria None Seen /HPF (<20); Urine Bilirubin NEGATIVE (Negative); Urine Blood Trace (Negative); Urine Clarity Extremely Turbid (Clear); Urine Color Light-Yellow (Yellow); Urine Culture Reflex Order NOT NEEDED; Urine Glucose NEGATIVE (Negative); Urine Ketones NEGATIVE (Negative); Urine Micro Reflex YN NO BILL MICROSCOPIC; Urine Mucus Slight /HPF (None Seen); Urine Nitrite NEGATIVE (Negative); Urine Protein NEGATIVE (Negative); Urine RBC <5 /HPF (None Seen); Urine Urobilinogen Normal (Normal); Urine WBC <5 /HPF (<5); Urine pH 5.5 (5.0-7.0)
[2025-01-04 02:58] LABS: Absolute Basophils 0.1 K/uL (0-0.5); Absolute Eosinophils 0.1 K/uL (0-0.5); Absolute Lymphocytes (CBC) 2.6 K/uL (0.7-4.9); Absolute Monocytes 0.9 K/uL (0.1-1.3); Absolute Neutrophil 9.8 K/uL (1.8-8.0); Basophils % 0.4 % (0-1.3); Hematocrit 35.1 % (36.0-45.0); Hemoglobin 11.7 g/dL (12.0-15.0); Lymphocytes % 19.3 % (15.3-44.8); MCH 30.1 pg (27.0-35.0); MCHC 33.4 g/dL (32.0-36.0); MCV 90.2 fL (80-100); Neutrophils % 72.3 % (41.7-73.7); Platelets 279 thou/uL (152-406); RBC Red Blood Cell Count 3.89 M/uL (3.86-4.86); Red Cell Distribution Width 14.3 % (12.1-15.2)
[2025-01-04 02:59] LABS: Specific Gravity 1.028 (1.005-1.030)
[2025-01-04 03:05] LABS: Albumin 2.9 g/dL (3.4-5.0); Albumin/Globulin Ratio 0.7 (1.1-1.8); Anion Gap 8.8 mEq/L (5.0-15.0); Bilirubin Total 0.2 mg/dL (0.2-1.0); Globulin 4.2 g/dL (2.3-3.5); Potassium 3.8 mEq/L (3.5-5.1); Protein, Total 7.1 g/dL (6.4-8.2)
--- NOTE | 2025-01-04 04:44 | RAD REPORT ---
EXAM: CT Abdomen and Pelvis With Intravenous Contrast CLINICAL HISTORY: The patient is 39 years old and is Female; Rectovaginal pain, eval for rectal abs cess. TECHNIQUE: Axial computed tomography images of the abdomen and pelvis with intravenous contrast. Sagittal and coronal reformatted images were created and reviewed. This CT exam was performed using one or more of the following dose reduction techniques: automated exposure control, adjustmen t of the mA and/or kV according to patient size, and/or use of iterative reconstruction technique. COMPARISON: No relevant prior studies available. FINDINGS: Lung bases: Unremarkable. No mass. No consolidation. ABDOMEN: Liver: Unremarkable. No mass. Gallbladder and bile ducts: Unremarkable. No calcified stones. No ductal dilation. Pancreas: No findings to suggest acute pancreatitis. No mass visualized. No ductal dilation. Spleen: Unremarkable. No splenomegaly. Adrenals: Unremarkable. No mass. Kidneys and ureters: Unremarkable. No solid mass. No hydronephrosis. Stomach and bowel: No bowel dilatation or obstruction. No bowel wall thickening. PELVIS: Appendix: The visualized appendix is normal. No pericecal inflammation to suggest acute appendici tis. Bladder: Unremarkable. No mass. Reproductive: 4.7 cm left ovarian simple cyst. Uterus and right adnexa are unremarkable. ABDOMEN and PELVIS: Intraperitoneal space: Unremarkable. No free air. No significant fluid collection. Bones/joints: No acute fracture. No dislocation. Soft tissues: In the midline perineal region, there is a 2.3 x 2.2 x 2.1 cm peripherally enhancin g cystic structure with a small focus of gas suggesting abscess. This can be seen on coronal image 88, sagittal image #80 and axial image #106. Vasculature: Unremarkable. No abdominal aortic aneurysm. Lymph nodes: No pathologically enlarged lymph nodes. IMPRESSION: 1. In the midline perineal region, there is a 2.3 x 2.2 x 2.1 cm peripherally enhancing cystic stru cture with a small focus of gas suggesting abscess. Clinical correlation suggested regarding location. This may be anterior perianal or perineal. 2. Left ovarian simple-appearing cyst measuring 4.7 cm. No follow-up imaging is recommended. Reference: JACR 2019;17(2):[id number] Electronically signed by: Brittni Chun MD 01/04/2025 04:39 AM [facility] V2 Due to temporary technical issues with the PACS/sezmie reporting system, reports are being christopher d by the in-house radiologist without review as a courtesy to ensure prompt reporting the interpreting radiologist is fully responsible for the content of the report. Transcribed Date/Time: 01/04/2025 4:44 AM
[2025-01-04] MEDS ORDERED: ONDANSETRON 4 MG/2 ML VIAL ONE (05:03)
--- NOTE | 2025-01-04 05:43 | ER ---
Nurse's Notes [facility] Name: Shelby Campos Age: 39 yrs Sex: Female : 1985 Arrival Date: 01/04/2025 Time: 00:21 Bed 5 Private MD: Diagnosis: Acute perianal abscess , Presentation: 01/04 01:03 Chief complaint: Patient states: Feels like something is coming out between my butthole vc1 and vagina and I am very raw down there. Coronavirus screen: Client denies travel out of the [place] in the last 14 days. At this time, the client does not indicate any symptoms associated with coronavirus-19. Ebola Screen: Patient negative for fever greater than or equal to 101.5 degrees Fahrenheit, and additional compatible Ebola Virus Disease symptoms Patient denies exposure to infectious person. Patient denies travel to an Ebola-affected area in the 21 days before illness onset. No symptoms or risks identified at this time. Initial Sepsis Screen: Does the patient meet any 2 criteria? No. Patient's initial sepsis screen is negative. Does the patient have a suspected source of infection? No. Patient's initial sepsis screen is negative. Risk Assessment: Do you want to hurt yourself or someone else? Patient reports no desire to harm self or others. Onset of symptoms was January 04, 2025. 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 - Infectious Disease History:: Denies. - Social history:: Smoking status: Patient denies any tobacco usage or history of. - Family history:: not pertinent. Screenin:08 [facility] ED Fall Risk Assessment (Adult) History of falling in the last 3 months, vc1 including since admission No falls in past 3 months (0 pts) Confusion or Disorientation No (0 pts) Intoxicated or Sedated No (0 pts) Impaired Gait No (0 pts) Mobility Assist Device Used No (0 pt) Altered Elimination No (0 pt) Score/Fall Risk Level 0 - 2 = Low Risk Oriented to surroundings, Maintained a safe environment, Educated pt \\T\\ family on fall prevention, incl call for assistance when getting out of bed. Abuse screen: Denies threats or abuse. Nutritional screening: No deficits noted. Tuberculosis screening: No symptoms or risk factors identified. Assessment: 01:06 General: Appears in no apparent distress. uncomfortable, Behavior is calm, cooperative. al5 Pain: Complains of pain in perineum Pain currently is 10 out of 10 on a pain scale. Neuro: Level of Consciousness is awake, alert, obeys commands, Oriented to person, place, time, situation. Cardiovascular: Capillary refill < 3 seconds Patient's skin is warm and dry. Respiratory: Airway is patent Respiratory effort is even, unlabored, Respiratory pattern is regular, symmetrical. GI: No signs and/or symptoms were reported involving the gastrointestinal system. : Reports pain Pain is 10 out of 10 on a pain scale. perineum. EENT: No signs and/or symptoms were reported regarding the EENT system. Derm: Skin is intact, is healthy with good turgor, Skin is pink, warm \\T\\ dry. normal. Musculoskeletal: No signs and/or symptoms reported regarding the musculoskeletal system. 02:50 Reassessment: Patient appears in no apparent distress at this time. Patient and/or al5 family updated on plan of care and expected duration. Pain level reassessed. Patient is alert, oriented x 3, equal unlabored respirations, skin warm/dry/pink. Patient states symptoms have improved. 04:01 Reassessment: Patient appears in no apparent distress at this time. No changes from al5 previously documented assessment. Patient and/or family updated on plan of care and expected duration. Pain level reassessed. Patient is alert, oriented x 3, equal unlabored respirations, skin warm/dry/pink. "pain is starting to come back but is not bad just yet.". 05:10 Reassessment: Patient appears in no apparent distress at this time. No changes from al5 previously documented assessment. Patient and/or family updated on plan of care and expected duration. Pain level reassessed. Patient is alert, oriented x 3, equal unlabored respirations, skin warm/dry/pink. per patient, pain is coming back again MD notified and new orders placed. 07:35 Reassessment: Patient appears in no apparent distress at this time. Patient and/or db family updated on plan of care and expected duration. Pain level reassessed. Patient is alert, oriented x 3, equal unlabored respirations, skin warm/dry/pink. Pain: Complains of pain in perineum. Vital Signs: 01:03 BP 118 / 77; Pulse 82; Resp 18; Temp 98.6; Weight 135.17 kg; Height 5 ft. 8 in. ; Pain vc1 1010; 02:00 BP 147 / 79; Pulse 70; Resp 18; Pulse Ox 98% ; al5 02:30 BP 141 / 86; Pulse 68; Resp 18; Pulse Ox 96% on R/A; al5 03:00 BP 146 / 94; Pulse 61; Resp 18; Pulse Ox 97% on R/A; al5 03:30 BP 121 / 74; Pulse 60; Resp 16; Pulse Ox 97% on R/A; al5 04:00 BP 121 / 74; Pulse 57; Resp 17; Pulse Ox 95% on R/A; al5 04:30 BP 122 / 79; Pulse 60; Resp 17; Pulse Ox 96% on R/A; al5 05:00 BP 103 / 69; Pulse 58; Resp 16; Pulse Ox 93% on R/A; al5 07:15 BP 123 / 78; Pulse 57; Resp 18; Pulse Ox 97% ; db 07:55 BP 120 / 66; Pulse 59; Resp 18; Pulse Ox 100% ; db 01:03 Body Mass Index 45.31 (135.17 kg, 172.72 cm) vc1 01:03 Pain Scale: Adult vc1 Coleman Coma Score: 05:38 Eye Response: spontaneous(4). Motor Response: obeys commands(6). Verbal Response: sp4 oriented(5). Total: 15. ED Course: 00:25 Patient arrived in ED. gm2 00:39 Jessee Barbosa MD is Attending Physician. sp4 01:06 Triage completed. vc1 01:08 Arm band placed on right wrist. vc1 01:09 Patient has correct armband on for positive identification. Placed in gown. Bed in low al5 position. Call light in reach. Side rails up X2. Provided Education on: plan of care. 01:09 Assist provider with pelvic exam: Performed by Jessee Barbosa MD Patient tolerated al5 well. 01:55 Tiffanie Wei, LUCIA is Primary Nurse. al5 02:02 Inserted saline lock: 20 gauge in right antecubital area, using aseptic technique. rv1 Blood collected. Flushed with 10 mL NS. 02:02 Test, Urine Sent. rv1 02:02 Urinalysis W/Microscopic Sent. rv1 02:02 CBC with Diff Sent. rv1 02:02 CMP Sent. rv1 02:02 Lipase Sent. rv1 02:08 Radiology exam delayed due to test not completed at this time. IV insertion sj attempt and/or patient not having appropriate IV at this time. 03:14 CT Abd/Pelvis - IV Contrast Only In Process Unspecified. EDMS 05:42 Mitchel Botello is Hospitalizing Provider. sp4 Administered Medications: 02:39 Drug: morphine IVP or IV 4 mg IVP once over 4 mins Route: IVP; Infused Over: 4 mins; al5 Site: right antecubital; 02:50 Follow up: Response: No adverse reaction; Pain is decreased al5 02:39 Drug: Ketorolac IVP 30 mg IVP once Route: IVP; Site: right antecubital; al5 02:50 Follow up: Response: No adverse reaction; Pain is decreased al5 02:39 Drug: NS 0.9% IV 1000 ml IV at 1000 ml once; to be given as a bolus over 60 minutes al5 Route: IV; Rate: 1000 ml; Site: right antecubital; 04:00 Follow up: Response: No adverse reaction; IV Status: Completed infusion; IV Intake: al5 1000ml 02:39 Drug: Diphenoxylate-Atropine PO 2 tabs PO once Route: PO; al5 04:00 Follow up: Response: No adverse reaction al5 02:39 Drug: Rocephin - Rocephin (cefTRIAXone) IVPB 1 grams IVPB once over 30 mins; (mix in 50 al5 mL NS) Route: IVPB; Infused Over: 30 mins; Site: right antecubital; 04:00 Follow up: Response: No adverse reaction; IV Status: Completed infusion; IV Intake: 07hahe1 05:16 Drug: Ondansetron IVP 4 mg IVP once; over 2 minutes Route: IVP; Site: right antecubital;al5 06:29 Follow up: Response: No adverse reaction al5 05:16 Drug: morphine IVP or IV 4 mg IVP once over 4 mins Route: IVP; Infused Over: 4 mins; al5 Site: right antecubital; 06:29 Follow up: Response: No adverse reaction; No adverse reaction; pain decreased slightly, al5 still feels throbbing 06:29 Drug: D5-1/2 NS IV 1000 ml IV at 125 ml/hr continuous Route: IV; Rate: 125 ml/hr; Site: al5 right antecubital; 06:29 Drug: metroNIDAZOLE IVPB 500 mg 100 ml IVPB at 200 ml/hr once over 30 mins Volume: 100 al5 ml; Route: IVPB; Rate: 200 ml/hr; Infused Over: 30 mins; Site: right antecubital; 07:50 Drug: morphine IVP or IV 4 mg IVP once over 4 mins Route: IVP; Infused Over: 4 mins; db Site: right antecubital; 07:50 Drug: metoCLOPramide IVP 10 mg IVP once; over 1 to 2 minutes Route: IVP; Site: right db antecubital; Medication: 01:08 VIS not applicable for this client. vc1 Intake: 04:00 IV: 50ml; Total: 50ml. al5 04:00 IV: 1000ml; Total: 1050ml. al5 Outcome: 05:42 Decision to Hospitalize by Provider. sp4 14:45 Patient left the ED. bp Signatures: Dispatcher [employer] Jovanna Maria Brian, RN RN bp Tania Snyder RN RN vc1 Karrie Ames RN RN db Villegas, Rebecca rv1 Potepalov, Sergey, MD MD sp4 Nalini Kimble 2 Tiffanie Wei RN RN al5 Corrections: (The following items were deleted from the chart) 05:16 05:15 BP 103 / 69; Pulse 58bpm; Resp 16bpm; Pulse Ox 93% RA; al5 al5
--- NOTE | 2025-01-04 05:43 | EDPHYS ---
Physician Documentation [facility] Name: Shelby Campos Age: 39 yrs Sex: Female : 1985 Arrival Date: 01/04/2025 Time: 00:21 Bed 5 Private MD: ED Physician Jessee Barbosa HPI: 01/04 00:39 This 39 yrs old Female presents to ER via Unassigned with complaints of sp4 Rectal Pain, Vaginal Pain. 05:38 39-year-old female presents with moderate to severe perianal pain and rectal pain sp4 associated with profuse diarrhea developing over the past 4 days.. 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 - Infectious Disease History:: Denies. - Social history:: Smoking status: Patient denies any tobacco usage or history of. - Family history:: not pertinent. ROS: 05:38 Constitutional: Negative for fever, chills, and weight loss, Back: Positive for rectal sp4 and perianal pain, positive for perineal pain 05:38 All other systems are negative, Exam: 05:38 Constitutional: This is a well developed, well nourished patient who is awake, alert, sp4 and in no acute distress. Head/Face: Normocephalic, atraumatic. Eyes: Pupils equal round and reactive to light, extra-ocular motions intact. Lids and lashes normal. Conjunctiva and sclera are not injected. Cornea within normal limits. Periorbital areas with no swelling, redness, or edema. ENT: Nares patent. No nasal discharge, no septal abnormalities noted. Tympanic membranes are normal and external auditory canals are clear. Oropharynx with no redness, swelling, or masses, exudates, or evidence of obstruction, uvula midline. Mucous membranes moist. Neck: Trachea midline, no thyromegaly or masses palpated, and no cervical lymphadenopathy. Supple, full range of motion without nuchal rigidity, or vertebral point tenderness. Chest/axilla: Normal chest wall appearance and motion. Nontender with no deformity. No lesions are appreciated. Cardiovascular: Regular rate and rhythm with a normal S1 and S2. No gallops, murmurs, or rubs. Normal PMI, no JVD. No pulse deficits. Respiratory: Lungs have equal breath sounds bilaterally, clear to auscultation and percussion. No rales, rhonchi or wheezes noted. No increased work of breathing, no retractions or nasal flaring. Abdomen/GI: Soft, with normal bowel sounds. No distension or tympany. No guarding or rebound. No evidence of tenderness throughout. Back: No spinal tenderness. No costovertebral tenderness. Pelvic Exam: RN present for exam, there is perineal tenderness without obvious fluctuance, no mass, no bleeding, no fissures, no fistulas, no hemorrhoid, no prolapse, normal anal tone, no rashes, no lesions, Skin: Warm, dry with normal turgor. Normal color with no rashes, no lesions, and no evidence of cellulitis. MS/ Extremity: Pulses equal, no cyanosis. Neurovascular intact. Full, normal range of motion. Neuro: Awake and alert, GCS 15, oriented to person, place, time, and situation. Cranial nerves II-XII grossly intact. Motor strength 5/5 in all extremities. Sensory grossly intact. Psych: Awake, alert, with orientation to person, place and time. Behavior, mood, and affect are within normal limits Vital Signs: 01:03 BP 118 / 77; Pulse 82; Resp 18; Temp 98.6; Weight 135.17 kg; Height 5 ft. 8 in. ; Pain vc1 10/10; 02:00 BP 147 / 79; Pulse 70; Resp 18; Pulse Ox 98% ; al5 02:30 BP 141 / 86; Pulse 68; Resp 18; Pulse Ox 96% on R/A; al5 03:00 BP 146 / 94; Pulse 61; Resp 18; Pulse Ox 97% on R/A; al5 03:30 BP 121 / 74; Pulse 60; Resp 16; Pulse Ox 97% on R/A; al5 04:00 BP 121 / 74; Pulse 57; Resp 17; Pulse Ox 95% on R/A; al5 04:30 BP 122 / 79; Pulse 60; Resp 17; Pulse Ox 96% on R/A; al5 05:00 BP 103 / 69; Pulse 58; Resp 16; Pulse Ox 93% on R/A; al5 07:15 BP 123 / 78; Pulse 57; Resp 18; Pulse Ox 97% ; db 07:55 BP 120 / 66; Pulse 59; Resp 18; Pulse Ox 100% ; db 01:03 Body Mass Index 45.31 (135.17 kg, 172.72 cm) vc1 01:03 Pain Scale: Adult vc1 Amber Coma Score: 05:38 Eye Response: spontaneous(4). Motor Response: obeys commands(6). Verbal Response: sp4 oriented(5). Total: 15. MDM: 01:17 Medical Screening Exam initiated sp4 05:37 ED course: EXAM: CTAbdomen and Pelvis With Intravenous Contrast CLINICAL HISTORY: The sp4 patient is 39 years old and is Female; Rectovaginal pain, eval for rectal abscess. TECHNIQUE: Axial computed tomography images of the abdomen and pelvis with intravenous contrast. Sagittal and coronal reformatted images were created and reviewed. This CT exam was performed using one or more of the following dose reduction techniques: automated exposure control, adjustment of the mA and/or kV according to patient size, and/or use of iterative reconstruction technique. COMPARISON: No relevant prior studies available. FINDINGS: Lung bases: Unremarkable. No mass. No consolidation. ABDOMEN: Liver: Unremarkable. No mass. Gallbladder and bile ducts: Unremarkable. No calcified stones. No ductal dilation. Pancreas: No findings to suggest acute pancreatitis. No mass visualized. No ductal dilation. Spleen: Unremarkable. No splenomegaly. Adrenals: Unremarkable. No mass. Kidneys and ureters: Unremarkable. No solid mass. No hydronephrosis. Stomach and bowel: No bowel dilatation or obstruction. No bowel wall thickening. PELVIS: Appendix: The visualized appendix is normal. No pericecal inflammation to suggest acute appendicitis. Bladder: Unremarkable. No mass. Reproductive: 4.7 cm left ovarian simple cyst. Uterus and right adnexa are unremarkable. ABDOMEN and PELVIS: Intraperitoneal space: Unremarkable. No free air. No significant fluid collection. Bones/joints: No acute fracture. No dislocation. Soft tissues: In the midline perineal region, there is a 2.3 x 2.2 x 2.1 cm peripherally enhancing cystic structure with a small focus of gas suggesting abscess. This can be seen on coronal image 88, sagittal image #80 and axial image #106. Vasculature: Unremarkable. No abdominal aortic aneurysm. Lymph nodes: No pathologically enlarged lymph nodes. IMPRESSION: 1. In the midline perineal region, there is a 2.3 x 2.2 x 2.1 cm peripherally enhancing cystic structure with a small focus of gas suggesting abscess. Clinical correlation suggested regarding location. This may be anterior perianal or perineal. 2. Left ovarian simple-appearing cyst measuring 4.7 cm. No follow-up imaging is recommended. Reference: JACR 2019;17(2):248-254 . 05:40 Differential diagnosis: hemorrhoids, fissure, abscess, pilonidal cyst, condyloma. Data sp4 reviewed: vital signs, nurses notes, lab test result(s), radiologic studies, CT scan. Consideration of Admission/Observation Patient was admitted/placed on observation. Escalation of care including admission/observation considered. Management of patient was discussed with the following: Hospitalist: Admit Team . Social Director: Bo HAY . ED course: Patient has small perianal abscess roughly 2 x [address] General surgeon has agreed to see patient in consult. Patient stable for admission.. 01/04 01:08 Order name: CBC with Diff; Complete Time: 05:25 sp4 01/04 01:08 Order name: CMP; Complete Time: 05:25 sp4 01/04 01:08 Order name: Lipase; Complete Time: 05:25 sp4 01/04 01:09 Order name: Urinalysis W/Microscopic; Complete Time: 05:25 sp4 01/04 01:09 Order name: Test, Urine; Complete Time: 05:25 sp4 01/04 08:14 Order name: Urinalysis w/ reflexes EDMS 01/04 08:14 Order name: Basic Metabolic Panel EDMS 01/04 08:14 Order name: Basic Metabolic Panel EDMS 01/04 08:14 Order name: Basic Metabolic Panel EDMS 01/04 08:14 Order name: Basic Metabolic Panel EDMS 01/04 08:14 Order name: CBC with Automated Diff EDMS 01/04 08:14 Order name: CBC with Automated Diff EDMS 01/04 08:14 Order name: CBC with Automated Diff EDMS 01/04 08:14 Order name: CBC with Automated Diff EDMS 01/04 08:14 Order name: Magnesium EDMS 01/04 08:14 Order name: Magnesium EDMS 01/04 08:14 Order name: Magnesium EDMS 01/04 08:14 Order name: Magnesium EDMS 01/04 08:14 Order name: Phosphorus EDMS 01/04 08:14 Order name: Phosphorus EDMS 01/04 08:14 Order name: Phosphorus EDMS 01/04 08:14 Order name: Phosphorus EDMS 01/04 02:01 Order name: CT Abd/Pelvis - IV Contrast Only sp4 01/04 08:13 Order name: CONS Physician Consult EDMS 01/04 01:08 Order name: IV Saline Lock; Complete Time: 02:02 sp4 01/04 01:08 Order name: Labs collected and sent; Complete Time: 02:02 sp4 01/04 01:08 Order name: Pelvic Exam Setup; Complete Time: 02:05 sp4 01/04 05:36 Order name: NPO; Complete Time: 05:47 sp4 Administered Medications: 02:39 Drug: morphine IVP or IV 4 mg IVP once over 4 mins Route: IVP; Infused Over: 4 mins; al5 Site: right antecubital; 02:50 Follow up: Response: No adverse reaction; Pain is decreased al5 02:39 Drug: Ketorolac IVP 30 mg IVP once Route: IVP; Site: right antecubital; al5 02:50 Follow up: Response: No adverse reaction; Pain is decreased al5 02:39 Drug: NS 0.9% IV 1000 ml IV at 1000 ml once; to be given as a bolus over 60 minutes al5 Route: IV; Rate: 1000 ml; Site: right antecubital; 04:00 Follow up: Response: No adverse reaction; IV Status: Completed infusion; IV Intake: al5 1000ml 02:39 Drug: Diphenoxylate-Atropine PO 2 tabs PO once Route: PO; al5 04:00 Follow up: Response: No adverse reaction al5 02:39 Drug: Rocephin - Rocephin (cefTRIAXone) IVPB 1 grams IVPB once over 30 mins; (mix in 50 al5 mL NS) Route: IVPB; Infused Over: 30 mins; Site: right antecubital; 04:00 Follow up: Response: No adverse reaction; IV Status: Completed infusion; IV Intake: [id number] 05:16 Drug: Ondansetron IVP 4 mg IVP once; over 2 minutes Route: IVP; Site: right antecubital;al5 06:29 Follow up: Response: No adverse reaction al5 05:16 Drug: morphine IVP or IV 4 mg IVP once over 4 mins Route: IVP; Infused Over: 4 mins; al5 Site: right antecubital; 06:29 Follow up: Response: No adverse reaction; No adverse reaction; pain decreased slightly, al5 still feels throbbing 06:29 Drug: D5-1/2 NS IV 1000 ml IV at 125 ml/hr continuous Route: IV; Rate: 125 ml/hr; Site: al5 right antecubital; 06:29 Drug: metroNIDAZOLE IVPB 500 mg 100 ml IVPB at 200 ml/hr once over 30 mins Volume: 100 al5 ml; Route: IVPB; Rate: 200 ml/hr; Infused Over: 30 mins; Site: right antecubital; 07:50 Drug: morphine IVP or IV 4 mg IVP once over 4 mins Route: IVP; Infused Over: 4 mins; db Site: right antecubital; 07:50 Drug: metoCLOPramide IVP 10 mg IVP once; over 1 to 2 minutes Route: IVP; Site: right db antecubital; Disposition Summary: 01/04/25 05:42 Hospitalization Ordered Notes: Hospitalization Status: Observation sp4 Provider: Mitchel Botello spImtiaz Condition: Stable sp4 Problem: new sp4 Symptoms: have improved sp4 Bed/Room Type: Standard sp4 Location: Telemetry/MedSurg (observation)(01/04/25 13:18) [facility] Room Assignment: [facility](01/04/25 13:18) [facility] Diagnosis - Acute perianal abscess , sp4 Forms: - Medication Reconciliation Form sp4 - SBAR form sp4 - Leadership Thank You Letter sp4 Signatures: Dispatcher [employer] EDMS Tania Snyder RN RN vc1 Karrie Ames RN RN db Natalia Feliz 6 Jessee Barbosa MD MD sp4 Minnie Aguilar 4 Tiffanie Wei RN RN al5 Corrections: (The following items were deleted from the chart) 01:09 01:09 CBC+H.LAB.BRZ ordered. EDMS EDMS 01:09 01:09 COMPREHENSIVE METABOLIC PANEL+C.LAB.BRZ ordered. EDMS EDMS 01:09 01:09 LIPASE+C.LAB.BRZ ordered. EDMS EDMS 02:01 02:01 Abdomen Pelvis W Con+CT.RAD.BRZ ordered. EDMS EDMS 06:07 05:42 Telemetry/MedSurg (observation) sp4 vc1 06:07 05:42 sp4 vc1 13:18 06:07 [facility] ER HOLD vc1 bc6 13:18 06:07 ERHOLD- vc1 bc6
[2025-01-04] MEDS ORDERED: METRONIDAZOLE 500mg IVPB 500 MG/100 ML BAG IV ONE (06:19)
[2025-01-04] MEDS ORDERED: D5 0.45 NS 1,000 ML IV ONE (06:19)
[2025-01-04] MEDS ORDERED: METOCLOPRAMIDE 10 MG/2mL INJ ONE (07:49)
[2025-01-04] MEDS: CIPROFLOXACIN 400mg IV 400 MG/200 ML BAG IV SCH (09:00)
[2025-01-04] MEDS: NA CHLORIDE 0.9% 1,000 ML IV SCH (09:00)
[2025-01-04] MEDS: MORPHINE 4 MG/ML SYR IV PRN (10:30)
[2025-01-04] MEDS ORDERED: CIPROFLOXACIN 400mg IV 400 MG/200 ML BAG IV ONE (10:39)
[2025-01-04 10:53] VITALS: BMI 45.2
--- NOTE | 2025-01-04 14:51 | P.HP ---
Certification for Inpatient Patient admitted to: Inpatient With expected LOS: >2 Midnights Practitioner: I am a practitioner with admitting privileges, knowledge of patient current condition, hospital course, and medical plan of care. Services: Services provided to patient in accordance with Admission requirements found in Title 42 Section 412.3 of the Code of Federal Regulations Patient History Date of Service: 01/04/25 Reason for admission: perianal abscess History of Present Illness: Shelby Campos is a 39 year old female with pmhx anxiety who presents to the ED with diarrhea and perianal/vaginal tenderness. She reports starting diarrhea last week then felt tenderness to the vaginal labial area. She reports not being able to sit at her desk at work any longer. She denies having symptoms like these before. Laboratory evaluation significant for WBC 13.6, H/H 11/35. CT abd/pelvis reports "1. In the midline perineal region, there is a 2.3 x 2.2 x 2.1 cm peripherally enhancing cystic structure with a small focus of gas suggesting abscess. Clinical correlation suggested regarding location. This may be anterior perianal or perineal. 2. Left ovarian simple-appearing cyst measuring 4.7 cm. No follow-up imaging is recommended" Shelby will be admitted to hospitalist service for further evaluation perianal abscess, Dr. Soriano consulted. Allergies No Known Allergies Allergy (Verified 12/18/13 13:14) Home Medications: Albuterol Inhaler [Ventolin Inhaler*] 02/16/14 Ferrous Sulfate [Iron] 325 mg PO DAILY 02/16/14 Mv-Mn/Iron/FA/Herbal/Digestive [ One Tablet] 1 tab PO DAILY 02/16/14 Hydrocodone 5/APAP 325 [[place] 5/325*] 1 tab PO Q6H PRN #30 tab 02/18/14 - Past Medical/Surgical History Has patient received pneumonia vaccine in the past: No Diabetic: No -: anxiety -: Tubal ligation - Social History Smoking Status: Unknown if ever smoked Alcohol use: No CD- Drugs: No Caffeine use: Yes Place of Residence: Home Review of Systems Other: per HPI Physical Examination - Vital Signs Blood Pressure: 128/61 Pulse: 68 Respirations: 15 Pulse Ox (%): 97 - Physical Exam General: Alert, In no apparent distress, Oriented x3 HEENT: Atraumatic, Normocephalic Neck: Supple, 2+ carotid pulse no bruit Respiratory: Clear to auscultation bilaterally, Normal air movement Cardiovascular: Normal pulses, Regular rate/rhythm, Normal S1 S2 Capillary refill: <2 Seconds Gastrointestinal: Normal bowel sounds, Soft and benign Musculoskeletal: No clubbing Integumentary: No rashes Neurological: Normal speech, Normal tone External genitalia: Tenderness - Studies Laboratory Data (last 24 hrs) 01/04/25 01/04/25 01:58 01:58 WBC 13.60 H Hgb 11.7 L Hct 35.1 L Plt Count 279 Sodium 136 Potassium 3.8 BUN 15 Creatinine 0.77 Glucose 103 Total Bilirubin 0.2 AST 14 L ALT 21 Alkaline Phosphatase 103 Lipase 32 Assessment and Plan - Plan Assessment and Plan Acute Perineal abscess Profuse Diarrhea Leukocytosis -WBC 13.6 -Dr. Steele consulted, plan for I and D in the AM -NPO at midnight -cipro and flagyl -Pain control -IVF -Lomotil and reglan given in the ED Anxiety -continue home medications DVT ppx SCD Full code LOS 2 days Discharge Plan: Home Plan to discharge in: 24 Hours - Advance Directives Does patient have a Living Will: No Does patient have a Durable POA for Healthcare: No
[2025-01-04] MEDS: METRONIDAZOLE 500mg IVPB 500 MG/100 ML BAG IV SCH (15:01)
[2025-01-04] MEDS: KETOROLAC 30 MG/ML INJ IV PRN (21:14)
[2025-01-05 05:58] LABS: Absolute Basophils 0.1 K/uL (0-0.5); Absolute Eosinophils 0.1 K/uL (0-0.5); Absolute Lymphocytes (CBC) 1.9 K/uL (0.7-4.9); Absolute Monocytes 0.7 K/uL (0.1-1.3); Basophils % 0.6 % (0-1.3); Eosinophils % 1.2 % (0-4.4); Hematocrit 31.3 % (36.0-45.0); Hemoglobin 10.6 g/dL (12.0-15.0); Lymphocytes % 17.1 % (15.3-44.8); MCH 30.7 pg (27.0-35.0); MCHC 33.8 g/dL (32.0-36.0); MCV 90.8 fL (80-100); MPV 8.9 fL (7.6-11.3); Monocytes % 6.9 % (3.3-12.3); Neutrophils % 74.2 % (41.7-73.7); Platelets 218 thou/uL (152-406); RBC Red Blood Cell Count 3.45 M/uL (3.86-4.86); Red Cell Distribution Width 14.4 % (12.1-15.2)
[2025-01-05 06:01] LABS: Anion Gap 8.9 mEq/L (5.0-15.0); Magnesium 2.1 mg/dL (1.6-2.4); Phosphorus 2.9 mg/dL (2.5-4.9); Potassium 3.9 mEq/L (3.5-5.1)
[2025-01-05] MEDS: HYDROMORPHONE HCL 1 MG/ML INJ IV PRN (09:26)
[2025-01-05] MEDS: BUPIVACAINE 0.5% PF 10 ML VIAL ONE (11:36)
[2025-01-05] MEDS: HYDROMORPHONE HCL 1 MG/ML INJ ONE (12:11)
[2025-01-05] MEDS ORDERED: LIDOCAINE 1% MPF 5 ML VIAL ONE (12:21)
[2025-01-05] MEDS ORDERED: MIDAZOLAM HCL 2 MG/2 ML INJ ONE (12:21)
[2025-01-05] MEDS ORDERED: ONDANSETRON 4 MG/2 ML VIAL ONE (12:21)
[2025-01-05] MEDS ORDERED: KETOROLAC 30 MG/ML INJ ONE (12:21)
[2025-01-05] MEDS ORDERED: propofoL 200 MG/20 ML VIAL IV ONE (12:21)
[2025-01-05] MEDS ORDERED: FENTANYL CITR 100 MCG/2 ML ONE (12:21)
--- NOTE | 2025-01-05 13:18 | P.BOP ---
Preoperative diagnosis: Perineal abscess Postoperative diagnosis: same Primary procedure: EUA , anoscopy, rigid proctoscopy, I &D complex perineal abscess [id number] Estimated blood loss: <10cc Specimen: culture Findings: Perianal abscess with drainage into posterior external genitalia, no masses Anesthesia: General Complications: None Transferred to: Recovery Room Condition: Good
--- NOTE | 2025-01-05 13:32 | CON ---
Date of Consultation: 01/05/2025 Diagnosis: Perianal abscess. History Of Present Illness: This is the case of a 39-year-old patient who comes to us with perianal and perineal tenderness just at the base of the external genitalia. It has been like that for about a week, but for the last few days got worse. She came to the ER, diagnosed with an abscess in the pe rineal, perianal area and a surgical consult was obtained for a drainage. She denies any trauma, den ies any dysuria, hematuria, hematochezia, melena. Denies any recent traveling out of the country. D enies any family member sick at home. Denies any vaginal discharge or any bleeding. No history of C rohn disease or history of a fistula. Review of Systems: Ten points otherwise unremarkable. Allergies: NONE. Medications: Reviewed including Ventolin and [place]. Social History: She does not smoke. She does not drink alcohol. Family History: Noncontributory. Physical Examination: Vital Signs: Reviewed. General: Patient is awake, alert. Eyes: Pupils are equal and reactive. Anicteric. Neck: Supple. Chest: Clear. Heart: S1, S2. Abdomen: Soft and depressible. Extremities: Good capillary refill. Rectal and perineal: Over the perineum, the patient has tenderness and swelling consistent with an a bscess. I do not see any specific opening or any specific fistula. We are going to do that under an esthesia. Extremities: Good capillary refill. Laboratory Data: Blood work shows a WBC count of 10.8 with hemoglobin of 10.6 and platelets of 218. Potassium 3.9, BUN is 9. CAT scan of abdomen and pelvis shows in the perineal area enhancing cystic structure with small focus of suggesting an abscess. 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 Assessment: Perineal/perianal abscess. Procedure: EUA, anoscopy, proctoscopy, incision and drainage of perianal abscess with benefits, alte rnatives, and risks including, but not limited to infection, bleeding, damage to adjacent structures, anesthesia complication, bowel perforation, MD, and even . She also understands this may not r elieve the symptoms. She might need more than 1 surgical intervention. She understands she may requ ian packing. There are occasions that sometimes we have all the pathology including fissures, fistul as that we might have to address in more than 1 occasion. KRAIG/KEHINDE Voice ID: [id number] Report ID: [id number]
[2025-01-05 13:44] VITALS: O2SAT 98
[2025-01-05] MEDS: ONDANSETRON 4 MG/2 ML VIAL IV PRN (17:02)
--- NOTE | 2025-01-05 19:09 | P.PN ---
Date of Service: 01/05/25 Subjective more discomfort this morning abscess/lesion more swollen and painful plan for I and D today ROS 10 point ROS as noted above, otherwise negative Physical Exam General: Alert and Oriented x3, NAD HEENT: Atraumatic, Normocephalic Neck: Supple, 2+ carotid pulse no bruit Respiratory: Clear to auscultation bilaterally, Normal air movement Cardiovascular: Normal pulses, RRR, Normal S1 S2 Capillary refill: <2 Seconds Gastrointestinal: Normal bowel sounds, Soft on palpation, active bowel sounds Musculoskeletal: No clubbing Integumentary: No rashes Neurological: Normal speech, Normal tone External genitalia: Tenderness Vitals Reviewed Problem list Acute Perineal abscess Profuse Diarrhea Leukocytosis Anxiety Assessment and Plan Acute Perineal abscess Profuse Diarrhea Leukocytosis -WBC 13.6 -Dr. Steele consulted, plan for I and D in the AM -NPO at midnight -cipro and flagyl -Pain control -IVF -Lomotil and reglan given in the ED Anxiety -continue home medications Interval hospital course 01/05/25 -changed morphine to dilaudid -surgery today, tolerated well -some nausea -wound cultures sent -continue IV antibiotics DVT ppx SCD Full code LOS 2 days Discharge Plan: Home Plan to discharge in: 24 Hours
[2025-01-05] MEDS: HYDROCODONE/APAP 7.5/325 MG TAB PO PRN (21:36)
[2025-01-06 04:57] VITALS: TEMP 97.6
[2025-01-06] MEDS: KETOROLAC 30 MG/ML INJ IV ONE (05:35)
[2025-01-06] MEDS: DOCUSATE NA/SENNA CONC 1 TAB PO PRN (05:36)
[2025-01-06 06:42] LABS: Absolute Eosinophils 0.1 K/uL (0-0.5); Absolute Lymphocytes (CBC) 1.6 K/uL (0.7-4.9); Absolute Monocytes 0.5 K/uL (0.1-1.3); Absolute Neutrophil 4.7 K/uL (1.8-8.0); Basophils % 0.5 % (0-1.3); Eosinophils % 2.1 % (0-4.4); Hematocrit 29.8 % (36.0-45.0); Lymphocytes % 22.7 % (15.3-44.8); MCH 30.6 pg (27.0-35.0); MCHC 33.6 g/dL (32.0-36.0); MPV 8.9 fL (7.6-11.3); Neutrophils % 67.7 % (41.7-73.7); Platelets 199 thou/uL (152-406); RBC Red Blood Cell Count 3.27 M/uL (3.86-4.86); Red Cell Distribution Width 14.2 % (12.1-15.2)
[2025-01-06 07:02] LABS: Anion Gap 7.8 mEq/L (5.0-15.0); Magnesium 1.9 mg/dL (1.6-2.4); Phosphorus 2.3 mg/dL (2.5-4.9); Potassium 3.8 mEq/L (3.5-5.1)
[2025-01-06 08:25] VITALS: BP 108/64
--- NOTE | 2025-01-06 09:12 | P.DS ---
Admission Date: 01/04/25 Discharge Date: 01/06/25 Disposition: ROUTINE DISCHARGE Discharge Condition: GOOD Reason for Admission: perianal abscess Brief History of Present Illness: Diagnosis Acute Perineal abscess Profuse Diarrhea Leukocytosis Anxiety HPI 01/04/2025 Shelby Campos is a 39 year old female with pmhx anxiety who presents to the ED with diarrhea and perianal/vaginal tenderness. She reports starting diarrhea last week then felt tenderness to the vaginal labial area. She reports not being able to sit at her desk at work any longer. She denies having symptoms like these before. Laboratory evaluation significant for WBC 13.6, H/H 11. CT abd/pelvis reports "1. In the midline perineal region, there is a 2.3 x 2.2 x 2.1 cm peripherally enhancing cystic structure with a small focus of gas schwartz ggesting abscess. Clinical correlation suggested regarding location. This may be anterior perianal or perineal. 2. Left ovarian simple-appearing cyst measuring 4.7 cm. No follow-up imaging is recommended" Shelby will be admitted to hospitalist service for further evaluation perianal abscess, Dr. Soriano consulted. Hospital Course: Patient was admitted and treated for the following diagnosis Acute Perineal abscess Profuse Diarrhea Leukocytosis -WBC resolved -Dr. Steele consulted, I and D January 01, tolerated well -cipro and flagyl tolerated -Pain control -IVF -Lomotil and reglan given in the ED Anxiety -continued home medications On 01/06/25, Shelby was seen on morning rounds and deemed hemodynamically stable. Dr. Soriano has evaluated and cleared for discharge. Packing must remain in place until appointment on 01/08/2025. Ciprofloxacin and tramadol were prescribed. Physical Exam General: AAO x3, NAD HEENT: Atraumatic, Normocephalic Neck: Supple, 2+ carotid pulse no bruit Respiratory: Clear to auscultation bilaterally, Normal air movement Cardiovascular: Normal pulses, RRR, Normal S1 S2 Capillary refill: <2 Seconds Gastrointestinal: Normal bowel sounds, Soft on palpation, active bowel sounds Musculoskeletal: No clubbing Integumentary: No rashes Neurological: Normal speech, Normal tone External genitalia: Tenderness, incision with packing Vital Signs/Physical Exam: Temp Pulse Resp BP Pulse Ox 97.6 F 59 19 108/64 98 01/06/25 08:00 01/06/25 08:00 01/06/25 08:00 01/06/25 08:00 01/06/25 08:00 Laboratory Data at Discharge: WBC 7.00 thou/uL (4.3-10.9) 01/06/25 05:50 Hgb 10.0 g/dL (12.0-15.0) L 01/06/25 05:50 Hct 29.8 % (36.0-45.0) L 01/06/25 05:50 Plt Count 199 thou/uL (152-406) 01/06/25 05:50 Sodium 138 mEq/L (136-145) 01/06/25 05:50 Potassium 3.8 mEq/L (3.5-5.1) 01/06/25 05:50 BUN 7 mg/dL (7-18) 01/06/25 05:50 Creatinine 0.50 mg/dL (0.55-1.02) L 01/06/25 05:50 Glucose 94 mg/dL (74-106) 01/06/25 05:50 Phosphorus 2.3 mg/dL (2.5-4.9) L 01/06/25 05:50 Magnesium 1.9 mg/dL (1.6-2.4) 01/06/25 05:50 Total Bilirubin 0.2 mg/dL (0.2-1.0) 01/04/25 01:58 AST 14 U/L (15-37) L 01/04/25 01:58 ALT 21 U/L (13-56) 01/04/25 01:58 Alkaline Phosphatase 103 U/L (45-117) 01/04/25 01:58 Lipase 32 U/L (13-75) 01/04/25 01:58 Home Medications: Buspirone HCl 1 tab PO BID 01/04/25 Escitalopram [Lexapro*] 1 tab PO DAILY 01/04/25 hydrOXYzine HCL [Atarax*] 1 tab PO BEDTIME 01/04/25 Ciprofloxacin HCl [Cipro 500 MG Tablet] 500 mg PO BID 7 Days #14 tab 01/06/25 traMADol HCL [Ultram*] 50 mg PO Q6H PRN 5 Days #15 tab 01/06/25 New Medications: Ciprofloxacin HCl [Cipro 500 MG Tablet] 500 mg PO BID 7 Days #14 tab traMADol HCL [Ultram*] 50 mg PO Q6H PRN 5 Days #15 tab PRN Reason: Pain Physician Discharge Instructions: 1. Please call and schedule a follow-up appointment with your PCP in 3-5 days - Please follow-up with your PCP for medication refills/adjustments 2. Please call and schedule a follow-up appointment with Dr. Soriano on WednesdayJanuary 08. -Do not remove the packing, Dr. Soriano will remove it at your appointment -the outer dressing can be changed if it becomes soiled 3. Continue regular diet 4. No activity restrictions 5. Return to the ED if symptoms worsen New medications Cipro 500 mg twice daily x 7 days Tramadol 50 mg every 6 hours as needed for pain x 15 doses Diet: Regular Followup: NONE,NONE [Primary Care Provider] - Oleg Soriano MD [ACTIVE - CAN ADMIT] -
--- NOTE | 2025-01-09 11:15 | EKG ---
Test Date: 2025-01-05 Test Time: 16:50:22 Bagging Salvager: ETHAN MEASUREMENT RESULTS: Intervals: Rate: 69 CO: 138 QRSD: 86 QT: 406 QTc: 435 [place]: P: 59 CO: 138 QRS: 56 T: 31 INTERPRETIVE STATEMENTS: Sinus rhythm with premature supraventricular complexes Otherwise normal ECG Compared to ECG 11/13/2024 05:51:05 Atrial premature complex(es) now present Electronically Signed On 01-09-25 11:04:03 CDT by Sesar Kaplan
--- NOTE | 2025-01-17 14:05 | OP ---
Surgeon: Oleg Soriano MD Preoperative Diagnosis: Perineal abscess. Postoperative Diagnosis: Perineal abscess. Procedure: Examination under anesthesia, anoscopy, rigid proctoscopy, incision and drainage of compl ex perineal abscess about 3 x 2 x 2 cm. Estimated Blood Loss: Less than 2 cc. Specimen: Culture. Findings: A perianal abscess with drainage into the posterior external vagina. No masses seen. The biopsy of that exit site into the vagina distal part right at the exit of it. It was biopsied and c ultures were done. Anesthesia: General plus local. Indications: This is a case of a 39-year-old patient with a perineal abscess. She was admitted to [facility], was tried on antibiotics overnight. At least she has a feeling of rupture into somewher e. Then we say well for that reason we need to once again do examination under anesthesia, rigid pro ctoscopy because she feels also it is going backward into the area of her anus. She is morbidly obes e, tender, so I have to be under anesthesia. We kept the patient n.p.o. and when it was safe to do s o, then anesthesia gave me the chance to move forward with EUA, anoscopy, rigid proctoscopy, and I an d D of complex perineal abscess. The benefits, alternatives, and risks fully explained, which includ e, but not limited to infection, bleeding, damage to adjacent structures, anesthesia complication, re currence, [place], and even . She also understands this may not relieve the symptoms. She might nee d more than one surgical intervention. She understood, signed a consent. Procedure In Detail: Patient brought to the operating room, placed in supine position. Anesthesia w as done without complication. The patient was placed in lithotomy position. Once again, we have the perineal abscess bulging in that area that is the area that she climbs tenderness and then we go ant erior and posterior. To check the posterior area, we did a rigid proctoscopy and sigmoidoscopy. We could see some internal and external hemorrhoids, but we did not see any outflow to that area. When we opened that abscess and we drained pus and we probed that area when it goes anteriorly and then we look at the exit of that vagina and it looked like she just want an excision in that region. We did not see any masses in that region. The area is inflamed. 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 I put Nu Gauze through and through in that area and packed it after we did the biopsies. Irriga tion was done. Hemostasis was obtained and then the local anesthetic was applied. The patient chepe ated the procedure well. Patient sent to Recovery in stable condition. KRAIG/KEHINDE Voice ID: [id number] Report ID: [id number]
== END 2025-01-06 11:43 | disposition home or self-care (01) | DRG 988 ==
LOC: ER 00:21 → ERHOLD 08:08 → 4TH 13:27
PROVIDERS: ADMIT Internal Medicine; ATTEND Internal Medicine
PROC: 0W9N0ZZ Drainage of Female Perineum, Open Approach (ICD-10-PCS; principal; 2025-01-04)
DX: K61.0 Anal abscess (principal); L02.215 Cutaneous abscess of perineum; Z68.42 Body mass index [BMI] 45.0-49.9, adult; E66.01 Morbid (severe) obesity due to excess calories; F41.9 Anxiety disorder, unspecified; N83.292 Other ovarian cyst, left side; D72.829 Elevated white blood cell count, unspecified; Z79.899 Other long term (current) drug therapy
CPT/HCPCS: 36415; 74177; 80048; 80053; 81001; 81025; 83690; 83735; 84100; 85025; 87070; 87075; 87077; 87186; 87205; 93005; 94010; 96365; 96375; 99284; J0696; J0744; J1171; J2003; J2250; J2405; J2704; J2765; J3010; J7030; J7799; Q9967